=== PATIENT | female | born 1960 | race Caucasian/White ===

== ENCOUNTER 2019-03-11 01:01 | Inpatient (IN) ==
[2019-03-11] MEDS ORDERED: DOCUSATE SODIUM 100 MG CAPSULE PO PRN (05:01)
[2019-03-11] MEDS ORDERED: ACETAMINOPHEN 325 MG TABLET PO PRN (05:01)
[2019-03-11] MEDS ORDERED: PROMETHAZINE 25 MG/1 ML VIAL IM PRN (05:01)
[2019-03-11] MEDS ORDERED: DEXTROSE 50% 25 GM/50 ML SYRINGE IV PRN (05:07)
[2019-03-11] MEDS: METOCLOPRAMIDE 10 MG/2 ML VIAL IV SCH ×3 (06:00→17:50)
[2019-03-11] MEDS: SODIUM CHLORIDE 0.9% 1,000 ML IV SCH ×3 (06:00→21:52)
[2019-03-11 06:23] LABS: Basophils # 0.1 10*3/uL (0.0-0.2); Basophils % 0.4 % (0.0-0.8); Hematocrit 32.2 VOL% (35.7-47.0); Hemoglobin 10.9 GM/DL (12.0-16.0); Immature Granulocytes % 2.2 %; Immature Granulocytes Absolute 0.41 #; Lymphocytes # 2.1 10*3/uL (1.4-4.0); Lymphocytes % 11.1 % (21.3-54.2); Mean Corpuscular HGB Conc 33.9 GM/DL (32-36); Mean Corpuscular Volume 87.7 FL (87-102); Mean Platelet Volume 9.9 FL (9.6-12.0); Monocytes % 8.3 % (1.7-12.7); NRBC # 0.02 10*3/uL; Platelet Count 397 T/CUMM (130-400); Red Blood Count 3.67 MC/CUMM (3.8-5.5); Red Cell Distribution Width 17.2 % (9.3-17.3); White Blood Count 18.8 T/CUMM (4-12)
[2019-03-11 06:59] LABS: Albumin 1.7 G/DL (3.4-5.0); Bilirubin,Total 0.8 MG/DL (0.2-1.0); Osmolality,Calculated 273.1 MOS/KG (273-304); Risk Ratio 1.95; Thyroid Stimulating Hormone 1.45 uIU/ml (0.358-3.74); Total Protein 6.3 G/DL (6.4-8.3)
[2019-03-11] MEDS ORDERED: POTASSIUM CHLORIDE 20 MEQ TABLET PO PRN (07:20)
[2019-03-11] MEDS: PANTOPRAZOLE 40 MG VIAL IV SCH ×2 (08:23→21:52)
[2019-03-11] MEDS: ONDANSETRON 4 MG/2 ML VIAL IV PRN ×4 (08:23→22:35)
[2019-03-11] MEDS: INSULIN LISPRO 100 UNIT/ML SUBCUT SCH ×4 (09:29→20:01)
[2019-03-11] MEDS: MAGNESIUM SULF RIDER 4 GM in PREMIX 1 EACH IV PRN (09:47)
[2019-03-11] MEDS: POTASSIUM CHLORIDE 20 MEQ/15 ML UDCUP PO SCH ×3 (12:49→21:52)
[2019-03-12] MEDS: METOCLOPRAMIDE 10 MG/2 ML VIAL IV SCH ×4 (00:25→17:05)
[2019-03-12] MEDS: SODIUM CHLORIDE 0.9% 1,000 ML IV SCH ×4 (01:11→13:55)
[2019-03-12] MEDS: POTASSIUM CHLORIDE 20 MEQ/15 ML UDCUP PO SCH ×6 (04:13→23:10)
[2019-03-12 04:51] LABS: Basophils % 0.2 % (0.0-0.8); Hematocrit 26.5 VOL% (35.7-47.0); Immature Granulocytes % 2.2 %; Immature Granulocytes Absolute 0.28 #; Lymphocytes # 1.9 10*3/uL (1.4-4.0); Lymphocytes % 14.8 % (21.3-54.2); Mean Corpuscular Volume 87.7 FL (87-102); Mean Platelet Volume 9.4 FL (9.6-12.0); Monocytes % 9.7 % (1.7-12.7); NRBC # 0.02 10*3/uL; Neutrophils % 73.1 % (38.7-73.9); Platelet Count 327 T/CUMM (130-400); Red Blood Count 3.02 MC/CUMM (3.8-5.5); White Blood Count 12.7 T/CUMM (4-12)
[2019-03-12 05:09] LABS: Calcium 7.4 MG/DL (8.5-10.1); Osmolality,Calculated 278.5 MOS/KG (273-304)
[2019-03-12 05:13] LABS: Burr Cells Slight; Hypochromasia 1+; Ovalocytes Slight; Platelet Estimate Adequate
[2019-03-12] MEDS: POTASSIUM CHLORIDE RIDER 10 MEQ in PREMIX 1 EACH IV SCH ×2 (08:05→10:56)
[2019-03-12] MEDS: GLUCAGON 1 MG VIAL IM PRN ×2 (08:30→13:56)
[2019-03-12] MEDS: INSULIN LISPRO 100 UNIT/ML SUBCUT SCH ×4 (08:57→23:10)
[2019-03-12] MEDS: PANTOPRAZOLE 40 MG VIAL IV SCH ×2 (09:45→22:55)
[2019-03-12] MEDS: ONDANSETRON 4 MG/2 ML VIAL IV PRN ×2 (12:35→23:05)
[2019-03-13] MEDS: SODIUM CHLORIDE 0.9% 1,000 ML IV SCH ×2 (00:02→10:07)
[2019-03-13] MEDS: METOCLOPRAMIDE 10 MG/2 ML VIAL IV SCH ×2 (00:25→06:35)
[2019-03-13 05:47] LABS: Basophils % 0.3 % (0.0-0.8); Hematocrit 26.7 VOL% (35.7-47.0); Hemoglobin 8.9 GM/DL (12.0-16.0); Immature Granulocytes % 2.4 %; Lymphocytes # 2.7 10*3/uL (1.4-4.0); Lymphocytes % 21.2 % (21.3-54.2); Mean Corpuscular HGB Conc 33.3 GM/DL (32-36); Mean Corpuscular Volume 89.6 FL (87-102); Mean Platelet Volume 9.3 FL (9.6-12.0); Monocytes % 9.8 % (1.7-12.7); NRBC # 0.02 10*3/uL; Neutrophils % 66.3 % (38.7-73.9); Platelet Count 337 T/CUMM (130-400); Red Blood Count 2.98 MC/CUMM (3.8-5.5); Red Cell Distribution Width 17.9 % (9.3-17.3); White Blood Count 12.6 T/CUMM (4-12)
[2019-03-13 06:08] LABS: Calcium 7.2 MG/DL (8.5-10.1); Osmolality,Calculated 284.7 MOS/KG (273-304)
[2019-03-13] MEDS: GLUCAGON 1 MG VIAL IM PRN (06:27)
[2019-03-13] MEDS ORDERED: MAGNESIUM SULF RIDER 4 GM in PREMIX 1 EACH IV ONE (09:00)
[2019-03-13] MEDS: DEXTROSE 10% 250 ML BAG IV PRN ×2 (09:01→13:36)
[2019-03-13] MEDS: POTASSIUM CHLORIDE 20 MEQ/15 ML UDCUP PO SCH ×2 (09:42→12:31)
[2019-03-13] MEDS: INSULIN LISPRO 100 UNIT/ML SUBCUT SCH ×2 (09:52→12:16)
[2019-03-13] MEDS ORDERED: LIDOCAINE 2% 5 ML VIAL ONE (10:00)
[2019-03-13] MEDS ORDERED: propofoL 200 MG/20 ML VIAL IV ONE (10:00)
[2019-03-13] MEDS: PANTOPRAZOLE 40 MG VIAL IV SCH (10:04)
[2019-03-13] MEDS: DEXTROSE 5% NACL 0.45% 1,000 ML IV SCH ×2 (12:31→21:35)
[2019-03-13] MEDS ORDERED: DEXTROSE 10% 250 ML IV ONE (13:31)
[2019-03-13] MEDS ORDERED: DEXTROSE 10% 250 ML BAG IV PRN (13:35)
[2019-03-13] MEDS: METOCLOPRAMIDE 10 MG/10 ML UDCUP PO SCH ×2 (17:46→21:22)
[2019-03-13] MEDS: PANTOPRAZOLE 40 MG TABLET PO SCH (17:46)
[2019-03-13] MEDS: MAGNESIUM SULF RIDER 4 GM in PREMIX 1 EACH IV PRN (21:20)
[2019-03-14 06:00] LABS: Basophils # 0.1 10*3/uL (0.0-0.2); Basophils % 0.5 % (0.0-0.8); Hematocrit 32.6 VOL% (35.7-47.0); Hemoglobin 10.6 GM/DL (12.0-16.0); Immature Granulocytes % 2.1 %; Lymphocytes # 3.3 10*3/uL (1.4-4.0); Lymphocytes % 17.6 % (21.3-54.2); Mean Corpuscular HGB Conc 32.5 GM/DL (32-36); Mean Corpuscular Volume 91.3 FL (87-102); Mean Platelet Volume 9.8 FL (9.6-12.0); Monocytes % 5.6 % (1.7-12.7); NRBC # 0.04 10*3/uL; Neutrophils % 74.2 % (38.7-73.9); Platelet Count 344 T/CUMM (130-400); Red Blood Count 3.57 MC/CUMM (3.8-5.5); White Blood Count 18.7 T/CUMM (4-12)
[2019-03-14 06:16] LABS: Calcium 7.3 MG/DL (8.5-10.1); Osmolality,Calculated 276.4 MOS/KG (273-304)
[2019-03-14] MEDS ORDERED: METOPROLOL TARTRATE 25 MG TABLET PO SCH (09:00)
[2019-03-14] MEDS ORDERED: TUBERCULIN SKIN TEST 0.1 ML SYRINGE INTRADERM ONE (09:00)
[2019-03-14] MEDS: METOCLOPRAMIDE 10 MG/10 ML UDCUP PO SCH ×4 (09:01→21:36)
[2019-03-14] MEDS: FLUoxetine 20 MG CAPSULE PO SCH (09:02)
[2019-03-14] MEDS: PANTOPRAZOLE 40 MG TABLET PO SCH ×2 (09:02→17:31)
[2019-03-14] MEDS: FLUCONAZOLE 100 MG TABLET PO SCH (09:02)
[2019-03-14] MEDS ORDERED: ONDANSETRON 4 MG TABLET PO PRN (09:36)
[2019-03-14] MEDS ORDERED: METOCLOPRAMIDE 10 MG TABLET PO SCH (12:00)
[2019-03-14] MEDS: MOXIFLOXACIN 0.5% OPH SOLN 3 ML BOTTLE LEFT EYE SCH ×3 (13:04→21:36)
[2019-03-14] MEDS: tiZANidine 4 MG TABLET PO SCH ×2 (14:48→21:36)
[2019-03-14] MEDS ORDERED: ONDANSETRON ODT 4 MG TABLET PO PRN (18:07)
[2019-03-14] MEDS ORDERED: cilostazoL 100 MG TABLET PO SCH (21:00)
[2019-03-14] MEDS ORDERED: HYDROXYCHLOROQUINE 200 MG TABLET PO SCH (21:00)
[2019-03-14] MEDS: SIMVASTATIN 20 MG TABLET PO SCH (21:36)
[2019-03-14] MEDS: DORZOLAMIDE/TIMOLOL OPH SOLN 10 ML BOTTLE LEFT EYE SCH (21:37)
[2019-03-15] MEDS: PANTOPRAZOLE 40 MG TABLET PO SCH ×2 (06:30→18:22)
[2019-03-15] MEDS ORDERED: NON-FORMULARY MEDICATION (Omeprazole 40 MG) PO SCH (09:00)
[2019-03-15] MEDS: DORZOLAMIDE/TIMOLOL OPH SOLN 10 ML BOTTLE LEFT EYE SCH ×2 (09:36→20:09)
[2019-03-15] MEDS: METOCLOPRAMIDE 10 MG/10 ML UDCUP PO SCH ×2 (09:37→12:33)
[2019-03-15] MEDS: predniSONE 5 MG TABLET PO SCH (09:37)
[2019-03-15] MEDS: tiZANidine 4 MG TABLET PO SCH (09:37)
[2019-03-15] MEDS: FLUoxetine 20 MG CAPSULE PO SCH (09:37)
[2019-03-15] MEDS: FLUCONAZOLE 100 MG TABLET PO SCH (09:37)
[2019-03-15] MEDS: MOXIFLOXACIN 0.5% OPH SOLN 3 ML BOTTLE LEFT EYE SCH ×4 (09:37→20:08)
[2019-03-15] MEDS: prednisoLONE ACETATE 1% OPH SUSP 5 ML BOTTLE LEFT EYE SCH (09:48)
[2019-03-15] MEDS ORDERED: SODIUM CHLORIDE 0.9% 250 ML IV ONE (11:53)
[2019-03-15] MEDS ORDERED: SODIUM CHLORIDE 0.9% 1,000 ML IV ONE ×2 (11:58→12:50)
[2019-03-15] MEDS ORDERED: VANCOMYCIN INJ 1,250 MG in SODIUM CHLORIDE 0.9% 250 ML IV SCH (12:30)
[2019-03-15 12:46] LABS: ABG Base Excess -8.4 MMOL/L (-2.5-2.5); ABG HCO3 17.5 MMOL/L (20-26); ABG Oxygen Saturation 94.2 % (95-100); ABG PCO2 26.7 MM HG (35-48); ABG PH 7.379 (7.35-7.45); ABG TCO2 14.7 MMOL/L (23-27); Allen Test Positive
[2019-03-15 13:16] LABS: Basophils # 0.1 10*3/uL (0.0-0.2); Basophils % 0.3 % (0.0-0.8); Hematocrit 25.5 VOL% (35.7-47.0); Hemoglobin 8.2 GM/DL (12.0-16.0); Immature Granulocytes % 2.3 %; Immature Granulocytes Absolute 0.34 #; Lymphocytes # 1.1 10*3/uL (1.4-4.0); Lymphocytes % 7.4 % (21.3-54.2); Mean Corpuscular HGB Conc 32.2 GM/DL (32-36); Mean Corpuscular Volume 92.1 FL (87-102); Mean Platelet Volume 9.6 FL (9.6-12.0); Monocytes % 4.1 % (1.7-12.7); NRBC # 0.02 10*3/uL; Neutrophils % 85.9 % (38.7-73.9); Platelet Count 241 T/CUMM (130-400); Red Blood Count 2.77 MC/CUMM (3.8-5.5); Red Cell Distribution Width 18.5 % (9.3-17.3); White Blood Count 14.6 T/CUMM (4-12)
[2019-03-15] MEDS: CEFEPIME 1,000 MG in SODIUM CHLORIDE 0.9% 100 ML IV SCH ×2 (13:27→18:22)
[2019-03-15 13:40] LABS: Bilirubin,Total 0.4 MG/DL (0.2-1.0); Calcium 7.3 MG/DL (8.5-10.1); Osmolality,Calculated 281.1 MOS/KG (273-304); Total Protein 4.1 G/DL (6.4-8.3)
[2019-03-15 13:54] LABS: Lymphocytes 2 % (20-55); Platelet Estimate Normal; Segmented Neutrophils 97 % (50-85); Total Cells Counted 100
[2019-03-15 13:55] LABS: Hypochromasia Slight
[2019-03-15] MEDS ORDERED: SODIUM CHLORIDE 0.9% 1,000 ML IV PRN (13:58)
[2019-03-15] MEDS: PHENYLEPHRINE DRIP 40 MG/250 ML PREMIX IV PRN (14:08)
[2019-03-15 14:09] LABS: Apearance,Urine Slightly Hazy (Clear); Bilirubin,Urine Negative (Negative); Blood, Urine Negative (Negative); Glucose,Urine (UA) Negative (Negative); Hyaline Casts,Urine 8 /LPF (0-3); Ketones,Urine Negative (Negative); Mucus,Urine Few /LPF (Occasional); Nitrite,Urine Negative (Negative); Protein,Urine 30 MG/DL; Squamous Epithelial Cell,Urine Occasional /HPF (0-10); Urine Color Dark yellow (Yellow); Urine Specific Gravity 1.017 (1.001-1.035); WBC,Urine 3 /HPF (0-6)
[2019-03-15] MEDS: VANCOMYCIN INJ 1,250 MG in SODIUM CHLORIDE 0.9% 250 ML IV SCH (14:18)
[2019-03-15] MEDS: DEXTROSE 5% NACL 0.45% 1,000 ML IV SCH (14:22)
[2019-03-15] MEDS ORDERED: SODIUM CHLORIDE 0.9% 1,000 ML IV STA (19:02)
[2019-03-15] MEDS: MAGNESIUM SULF RIDER 2 GM in PREMIX 1 EACH IV PRN (19:09)
[2019-03-15 20:00] LABS: Hemoglobin 9.5 GM/DL (12.0-16.0)
[2019-03-15] MEDS: NYSTATIN POWDER 15 GM BOTTLE TOP SCH (20:05)
[2019-03-15] MEDS: SIMVASTATIN 20 MG TABLET PO SCH (20:05)
[2019-03-15] MEDS: BRIMONIDINE/TIMOLOL OPH SOLN 5 ML BOTTLE LEFT EYE SCH (20:07)
[2019-03-16] MEDS: CEFEPIME 1,000 MG in SODIUM CHLORIDE 0.9% 100 ML IV SCH ×4 (00:10→18:07)
[2019-03-16 02:41] LABS: Basophils # 0.1 10*3/uL (0.0-0.2); Basophils % 0.4 % (0.0-0.8); Hematocrit 31.8 VOL% (35.7-47.0); Hemoglobin 10.4 GM/DL (12.0-16.0); Immature Granulocytes Absolute 0.68 #; Lymphocytes # 1.9 10*3/uL (1.4-4.0); Lymphocytes % 8.5 % (21.3-54.2); Mean Corpuscular HGB Conc 32.7 GM/DL (32-36); Mean Corpuscular Volume 91.4 FL (87-102); Mean Platelet Volume 9.6 FL (9.6-12.0); Monocytes % 3.8 % (1.7-12.7); NRBC # 0.05 10*3/uL; Neutrophils % 84.3 % (38.7-73.9); Platelet Count 287 T/CUMM (130-400); Red Blood Count 3.48 MC/CUMM (3.8-5.5); Red Cell Distribution Width 18.1 % (9.3-17.3); White Blood Count 22.7 T/CUMM (4-12)
[2019-03-16] MEDS: PHENYLEPHRINE DRIP 40 MG/250 ML PREMIX IV PRN ×3 (03:04→15:25)
[2019-03-16 03:20] LABS: Lymphocytes 9 % (20-55); Segmented Neutrophils 88 % (50-85); Total Cells Counted 100
[2019-03-16 03:32] LABS: Acanthocytes Few; Burr Cells Few; Hypochromasia 1+; Platelet Estimate Normal; Polychromasia Few
[2019-03-16 03:56] LABS: Albumin 1.1 G/DL (3.4-5.0); Bilirubin,Total 0.8 MG/DL (0.2-1.0); Calcium 7.2 MG/DL (8.5-10.1); Total Protein 4.7 G/DL (6.4-8.3)
[2019-03-16 05:19] LABS: ABG HCO3 14.4 MMOL/L (20-26); ABG Oxygen Saturation 94.7 % (95-100); ABG PCO2 39.5 MM HG (35-48); ABG PO2 86.9 MM HG (80-95); ABG TCO2 13.7 MMOL/L (23-27)
[2019-03-16 05:26] LABS: ABG PH 7.185 (7.35-7.45)
[2019-03-16] MEDS ORDERED: SODIUM BICARBONATE 50 MEQ/50 ML VIAL IV ONE (05:28)
[2019-03-16] MEDS ORDERED: VECURONIUM 10 MG VIAL IV ONE ×2 (05:34→05:40)
[2019-03-16] MEDS ORDERED: ETOMIDATE 20 MG/10 ML VIAL IV ONE ×2 (05:34→05:40)
[2019-03-16] MEDS: DEXTROSE 5% NACL 0.45% 1,000 ML IV SCH ×2 (06:31→18:03)
[2019-03-16] MEDS: PANTOPRAZOLE 40 MG TABLET PO SCH (06:39)
[2019-03-16 08:16] LABS: ABG HCO3 15.8 MMOL/L (20-26); ABG Oxygen Saturation 95.3 % (95-100); ABG PCO2 48.5 MM HG (35-48); ABG PO2 89.2 MM HG (80-95); ABG TCO2 16.3 MMOL/L (23-27)
[2019-03-16 08:17] LABS: ABG PH 7.172 (7.35-7.45)
[2019-03-16] MEDS: FLUCONAZOLE 100 MG TABLET PO SCH (08:31)
[2019-03-16] MEDS: predniSONE 5 MG TABLET PO SCH (08:32)
[2019-03-16] MEDS: FLUoxetine 20 MG CAPSULE PO SCH (08:32)
[2019-03-16] MEDS ORDERED: HEPARIN/NACL 0.9% 2 UNITS/ML 500 ML IV ONE (08:48)
[2019-03-16] MEDS ORDERED: HEPARIN/NACL 0.9% 2 UNITS/ML 500 ML IV SCH (09:00)
[2019-03-16] MEDS: BRIMONIDINE/TIMOLOL OPH SOLN 5 ML BOTTLE LEFT EYE SCH ×2 (09:06→21:20)
[2019-03-16] MEDS: MOXIFLOXACIN 0.5% OPH SOLN 3 ML BOTTLE LEFT EYE SCH ×4 (09:07→21:21)
[2019-03-16] MEDS: prednisoLONE ACETATE 1% OPH SUSP 5 ML BOTTLE LEFT EYE SCH (09:10)
[2019-03-16] MEDS: NYSTATIN POWDER 15 GM BOTTLE TOP SCH ×2 (09:10→21:21)
[2019-03-16] MEDS: FLUCONAZOLE INJ 100 MG in IV BAG 1 EACH IV SCH (11:10)
[2019-03-16 11:11] LABS: ABG Base Excess -8.4 MMOL/L (-2.5-2.5); ABG HCO3 17.7 MMOL/L (20-26); ABG Oxygen Saturation 97.3 % (95-100); ABG PCO2 29.5 MM HG (35-48); ABG PH 7.347 (7.35-7.45); ABG PO2 88.1 MM HG (80-95); ABG TCO2 14.5 MMOL/L (23-27)
[2019-03-16] MEDS: DORZOLAMIDE/TIMOLOL OPH SOLN 10 ML BOTTLE LEFT EYE SCH ×2 (14:41→21:20)
[2019-03-16] MEDS: VANCOMYCIN INJ 1,250 MG in SODIUM CHLORIDE 0.9% 250 ML IV SCH (14:51)
[2019-03-16 18:06] LABS: ABG Base Excess -9.5 MMOL/L (-2.5-2.5); ABG HCO3 16.9 MMOL/L (20-26); ABG Oxygen Saturation 97.7 % (95-100); ABG PCO2 28.9 MM HG (35-48); ABG PH 7.332 (7.35-7.45); ABG PO2 96.4 MM HG (80-95); ABG TCO2 13.9 MMOL/L (23-27)
[2019-03-16] MEDS: PANTOPRAZOLE 40 MG VIAL IV SCH (18:07)
[2019-03-16] MEDS: SIMVASTATIN 20 MG TABLET PO SCH (21:20)
[2019-03-16] MEDS: fentaNYL INJ 1,250 MCG in SODIUM CHLORIDE 0.9% 225 ML IV PRN (22:30)
[2019-03-17] MEDS: CEFEPIME 1,000 MG in SODIUM CHLORIDE 0.9% 100 ML IV SCH ×4 (00:56→17:35)
[2019-03-17 04:23] LABS: Allen Test Positive; Pt O2 Delivery Device Ventilator
[2019-03-17 04:24] LABS: ABG Base Excess -11.1 MMOL/L (-2.5-2.5); ABG HCO3 15.5 MMOL/L (20-26); ABG Oxygen Saturation 85.5 % (95-100); ABG PCO2 39.3 MM HG (35-48); ABG PH 7.221 (7.35-7.45); ABG PO2 55.2 MM HG (80-95); ABG TCO2 14.8 MMOL/L (23-27)
[2019-03-17] MEDS: DEXTROSE 5% NACL 0.45% 1,000 ML IV SCH ×2 (05:37→07:04)
[2019-03-17] MEDS: PHENYLEPHRINE DRIP 40 MG/250 ML PREMIX IV PRN (05:38)
[2019-03-17] MEDS ORDERED: SODIUM BICARBONATE 50 MEQ/50 ML VIAL IV ONE ×2 (06:57)
[2019-03-17] MEDS: PANTOPRAZOLE 40 MG VIAL IV SCH ×2 (07:15→17:30)
[2019-03-17 07:19] LABS: Basophils # 0.1 10*3/uL (0.0-0.2); Basophils % 0.5 % (0.0-0.8); Hematocrit 34.5 VOL% (35.7-47.0); Immature Granulocytes % 2.2 %; Lymphocytes # 2.3 10*3/uL (1.4-4.0); Lymphocytes % 8.4 % (21.3-54.2); Mean Corpuscular HGB Conc 31.9 GM/DL (32-36); Mean Corpuscular Volume 93.5 FL (87-102); Mean Platelet Volume 10.2 FL (9.6-12.0); Monocytes % 3.6 % (1.7-12.7); Neutrophils % 85.3 % (38.7-73.9); Platelet Count 221 T/CUMM (130-400); Red Blood Count 3.69 MC/CUMM (3.8-5.5); White Blood Count 27.5 T/CUMM (4-12)
[2019-03-17] MEDS ORDERED: FUROSEMIDE 40 MG/4 ML VIAL IV ONE (07:19)
[2019-03-17 07:39] LABS: Burr Cells Slight; Eosinophils 1 % (0-10); Hypochromasia Slight; Lymphocytes 6 % (20-55); Ovalocytes Slight; Platelet Estimate Adequate; Segmented Neutrophils 90 % (50-85); Total Cells Counted 100
[2019-03-17 07:47] LABS: Calcium 7.4 MG/DL (8.5-10.1); Osmolality,Calculated 282.1 MOS/KG (273-304)
[2019-03-17] MEDS: HYDROCORTISONE 100 MG VIAL IV SCH ×2 (08:58→16:30)
[2019-03-17] MEDS: prednisoLONE ACETATE 1% OPH SUSP 5 ML BOTTLE LEFT EYE SCH (09:00)
[2019-03-17] MEDS: MOXIFLOXACIN 0.5% OPH SOLN 3 ML BOTTLE LEFT EYE SCH ×4 (09:00→21:06)
[2019-03-17] MEDS: BRIMONIDINE/TIMOLOL OPH SOLN 5 ML BOTTLE LEFT EYE SCH ×2 (09:01→21:07)
[2019-03-17] MEDS: DORZOLAMIDE/TIMOLOL OPH SOLN 10 ML BOTTLE LEFT EYE SCH ×2 (09:01→21:07)
[2019-03-17] MEDS: NYSTATIN POWDER 15 GM BOTTLE TOP SCH ×2 (09:01→21:07)
[2019-03-17] MEDS: MULTIVITAMIN LIQUID (CENTRUM) 60 ML BOTTLE PER TUBE SCH (09:44)
[2019-03-17] MEDS: FLUoxetine 20 MG CAPSULE PO SCH (09:44)
[2019-03-17] MEDS: FLUCONAZOLE INJ 100 MG in IV BAG 1 EACH IV SCH (09:44)
[2019-03-17] MEDS: NOREPINEPHRINE 8 MG in SODIUM CHLORIDE 0.9% 242 ML IV PRN ×2 (09:49→22:41)
[2019-03-17] MEDS: POTASSIUM CHLORIDE 20 MEQ/15 ML UDCUP PER TUBE PRN ×4 (09:56→17:30)
[2019-03-17] MEDS ORDERED: HEPARIN/NACL 0.9% 2 UNITS/ML 500 ML IV ONE (10:26)
[2019-03-17] MEDS: HEPARIN/NACL 0.9% 2 UNITS/ML 500 ML IV SCH (13:16)
[2019-03-17] MEDS: VANCOMYCIN INJ 1,250 MG in SODIUM CHLORIDE 0.9% 250 ML IV SCH (15:01)
[2019-03-17] MEDS: fentaNYL INJ 1,250 MCG in SODIUM CHLORIDE 0.9% 225 ML IV PRN (15:05)
[2019-03-17] MEDS: SODIUM BICARB INJ 100 MEQ in DEXTROSE 5% 1,000 ML IV SCH (16:03)
[2019-03-17] MEDS: SIMVASTATIN 20 MG TABLET PO SCH (21:05)
[2019-03-18] MEDS: CEFEPIME 1,000 MG in SODIUM CHLORIDE 0.9% 100 ML IV SCH ×4 (00:29→17:26)
[2019-03-18] MEDS: HYDROCORTISONE 100 MG VIAL IV SCH ×3 (00:29→16:28)
[2019-03-18] MEDS: DORZOLAMIDE/TIMOLOL OPH SOLN 10 ML BOTTLE LEFT EYE SCH ×3 (01:00→20:57)
[2019-03-18] MEDS: SODIUM BICARB INJ 100 MEQ in DEXTROSE 5% 1,000 ML IV SCH ×3 (02:11→14:40)
[2019-03-18 03:37] LABS: ABG Base Excess -8.7 MMOL/L (-2.5-2.5); ABG HCO3 16.7 MMOL/L (20-26); ABG Oxygen Saturation 97.9 % (95-100); ABG PCO2 34.1 MM HG (35-48); ABG PH 7.307 (7.35-7.45); ABG PO2 106.9 MM HG (80-95); ABG TCO2 17.7 MMOL/L (23-27)
[2019-03-18 03:51] LABS: Basophils # 0.1 10*3/uL (0.0-0.2); Basophils % 0.4 % (0.0-0.8); Hematocrit 33.3 VOL% (35.7-47.0); Hemoglobin 11.2 GM/DL (12.0-16.0); Immature Granulocytes % 3.3 %; Immature Granulocytes Absolute 1.18 #; Lymphocytes # 1.7 10*3/uL (1.4-4.0); Lymphocytes % 4.7 % (21.3-54.2); Mean Corpuscular HGB Conc 33.6 GM/DL (32-36); Mean Corpuscular Volume 90.2 FL (87-102); Mean Platelet Volume 10.7 FL (9.6-12.0); Monocytes % 3.4 % (1.7-12.7); NRBC # 0.06 10*3/uL; Neutrophils % 88.2 % (38.7-73.9); Platelet Count 157 T/CUMM (130-400); Red Blood Count 3.69 MC/CUMM (3.8-5.5); Red Cell Distribution Width 18.6 % (9.3-17.3); White Blood Count 35.2 T/CUMM (4-12)
[2019-03-18 04:16] LABS: Calcium 7.1 MG/DL (8.5-10.1); Osmolality,Calculated 288.1 MOS/KG (273-304)
[2019-03-18 04:19] LABS: Eosinophils 1 % (0-10); Hypochromasia Slight; Lymphocytes 5 % (20-55); Platelet Estimate Adequate; Segmented Neutrophils 91 % (50-85); Total Cells Counted 100
[2019-03-18] MEDS: MAGNESIUM SULF RIDER 4 GM in PREMIX 1 EACH IV PRN (04:29)
[2019-03-18] MEDS: PANTOPRAZOLE 40 MG VIAL IV SCH ×2 (06:31→18:07)
[2019-03-18] MEDS: NOREPINEPHRINE 8 MG in SODIUM CHLORIDE 0.9% 242 ML IV PRN ×2 (09:40→20:31)
[2019-03-18] MEDS: NYSTATIN POWDER 15 GM BOTTLE TOP SCH ×2 (09:41→20:57)
[2019-03-18] MEDS: MULTIVITAMIN LIQUID (CENTRUM) 60 ML BOTTLE PER TUBE SCH (09:41)
[2019-03-18] MEDS: MOXIFLOXACIN 0.5% OPH SOLN 3 ML BOTTLE LEFT EYE SCH ×4 (09:41→20:57)
[2019-03-18] MEDS: prednisoLONE ACETATE 1% OPH SUSP 5 ML BOTTLE LEFT EYE SCH (09:41)
[2019-03-18] MEDS: BRIMONIDINE/TIMOLOL OPH SOLN 5 ML BOTTLE LEFT EYE SCH ×2 (09:42→20:57)
[2019-03-18] MEDS: FLUoxetine 20 MG CAPSULE PO SCH (09:43)
[2019-03-18] MEDS: FLUCONAZOLE INJ 100 MG in IV BAG 1 EACH IV SCH (09:48)
[2019-03-18] MEDS ORDERED: SODIUM PHOSPHATE ENEMA 133 ML BOTTLE RECTAL PRN (10:31)
[2019-03-18] MEDS: HEPARIN/NACL 0.9% 2 UNITS/ML 500 ML IV SCH (12:28)
[2019-03-18] MEDS: VANCOMYCIN INJ 1,250 MG in SODIUM CHLORIDE 0.9% 250 ML IV SCH (15:23)
[2019-03-18] MEDS: fentaNYL INJ 1,250 MCG in SODIUM CHLORIDE 0.9% 225 ML IV PRN (17:25)
[2019-03-18] MEDS: SIMVASTATIN 20 MG TABLET PO SCH (20:57)
[2019-03-19] MEDS: SODIUM BICARB INJ 100 MEQ in DEXTROSE 5% 1,000 ML IV SCH ×4 (00:18→18:11)
[2019-03-19] MEDS: HYDROCORTISONE 100 MG VIAL IV SCH ×4 (00:29→18:04)
[2019-03-19] MEDS: CEFEPIME 1,000 MG in SODIUM CHLORIDE 0.9% 100 ML IV SCH ×4 (00:29→21:30)
[2019-03-19 04:19] LABS: ABG Base Excess -6.8 MMOL/L (-2.5-2.5); ABG HCO3 18.9 MMOL/L (20-26); ABG Oxygen Saturation 99.5 % (95-100); ABG PCO2 52.2 MM HG (35-48); ABG TCO2 19.6 MMOL/L (23-27)
[2019-03-19 04:28] LABS: Basophils # 0.1 10*3/uL (0.0-0.2); Basophils % 0.4 % (0.0-0.8); Hematocrit 34.1 VOL% (35.7-47.0); Hemoglobin 11.1 GM/DL (12.0-16.0); Immature Granulocytes % 3.7 %; Immature Granulocytes Absolute 1.35 #; Lymphocytes # 1.6 10*3/uL (1.4-4.0); Lymphocytes % 4.4 % (21.3-54.2); Mean Corpuscular HGB Conc 32.6 GM/DL (32-36); Mean Corpuscular Volume 92.9 FL (87-102); Mean Platelet Volume 11.5 FL (9.6-12.0); Monocytes % 3.5 % (1.7-12.7); NRBC # 0.08 10*3/uL; Platelet Count 113 T/CUMM (130-400); Red Blood Count 3.67 MC/CUMM (3.8-5.5); Red Cell Distribution Width 19.3 % (9.3-17.3); White Blood Count 36.6 T/CUMM (4-12)
[2019-03-19 04:47] LABS: Blood Urea Nitrogen 30 MG/DL (7-18); Calcium 7.4 MG/DL (8.5-10.1); Estimated Glom Filtration Rate 50 ML/MIN; Glucose 144 MG/DL (74-106); Prealbumin < 3.0 MG/DL (20-40)
[2019-03-19 04:57] LABS: Band Neutrophils 2 % (0-10); Hypochromasia Slight; Lymphocytes 2 % (20-55); Segmented Neutrophils 93 % (50-85); Total Cells Counted 100
[2019-03-19 04:58] LABS: Microcytosis 1+; Platelet Estimate Adequate
[2019-03-19] MEDS: PANTOPRAZOLE 40 MG VIAL IV SCH ×2 (06:09→18:04)
[2019-03-19] MEDS ORDERED: FUROSEMIDE 40 MG/4 ML VIAL IV ONE (07:23)
[2019-03-19] MEDS ORDERED: FUROSEMIDE 40 MG/4 ML VIAL ONE (07:25)
[2019-03-19] MEDS: NOREPINEPHRINE 8 MG in SODIUM CHLORIDE 0.9% 242 ML IV PRN (08:20)
[2019-03-19] MEDS ORDERED: METOCLOPRAMIDE 10 MG/2 ML VIAL ONE (09:25)
[2019-03-19] MEDS: FLUoxetine 20 MG CAPSULE PO SCH (09:50)
[2019-03-19] MEDS: MULTIVITAMIN LIQUID (CENTRUM) 60 ML BOTTLE PER TUBE SCH (09:50)
[2019-03-19] MEDS: DORZOLAMIDE/TIMOLOL OPH SOLN 10 ML BOTTLE LEFT EYE SCH ×2 (10:18→21:31)
[2019-03-19] MEDS: prednisoLONE ACETATE 1% OPH SUSP 5 ML BOTTLE LEFT EYE SCH (10:19)
[2019-03-19] MEDS: MOXIFLOXACIN 0.5% OPH SOLN 3 ML BOTTLE LEFT EYE SCH ×4 (10:19→21:31)
[2019-03-19] MEDS: BRIMONIDINE/TIMOLOL OPH SOLN 5 ML BOTTLE LEFT EYE SCH ×3 (10:19→21:33)
[2019-03-19] MEDS: NYSTATIN POWDER 15 GM BOTTLE TOP SCH ×2 (10:19→21:31)
[2019-03-19] MEDS: FLUCONAZOLE INJ 100 MG in IV BAG 1 EACH IV SCH (10:36)
[2019-03-19] MEDS: HEPARIN/NACL 0.9% 2 UNITS/ML 500 ML IV SCH (11:22)
[2019-03-19] MEDS: METOCLOPRAMIDE 10 MG/2 ML VIAL IV SCH ×2 (12:06→18:04)
[2019-03-19] MEDS ORDERED: INFLUENZA VIRUS VACCINE 0.5 ML SYRINGE IM ONE (12:39)
[2019-03-19] MEDS: VANCOMYCIN INJ 1,250 MG in SODIUM CHLORIDE 0.9% 250 ML IV SCH (13:42)
[2019-03-19] MEDS ORDERED: HYDROCORTISONE 100 MG VIAL IV SCH (18:00)
[2019-03-19] MEDS: SIMVASTATIN 20 MG TABLET PO SCH (21:44)
[2019-03-20] MEDS: SODIUM BICARB INJ 100 MEQ in DEXTROSE 5% 1,000 ML IV SCH ×5 (00:15→21:17)
[2019-03-20] MEDS: CEFEPIME 1,000 MG in SODIUM CHLORIDE 0.9% 100 ML IV SCH ×3 (00:59→13:14)
[2019-03-20] MEDS: METOCLOPRAMIDE 10 MG/2 ML VIAL IV SCH ×2 (00:59→05:12)
[2019-03-20] MEDS: HYDROCORTISONE 100 MG VIAL IV SCH ×4 (01:48→22:56)
[2019-03-20] MEDS: NOREPINEPHRINE 8 MG in SODIUM CHLORIDE 0.9% 242 ML IV PRN (04:08)
[2019-03-20 05:14] LABS: ABG Base Excess -1.5 MMOL/L (-2.5-2.5); ABG Oxygen Saturation 90.1 % (95-100); ABG PCO2 37.9 MM HG (35-48); ABG PH 7.393 (7.35-7.45); ABG PO2 57.2 MM HG (80-95)
[2019-03-20 05:17] LABS: Basophils # 0.1 10*3/uL (0.0-0.2); Basophils % 0.2 % (0.0-0.8); Hematocrit 28.5 VOL% (35.7-47.0); Hemoglobin 9.7 GM/DL (12.0-16.0); Immature Granulocytes Absolute 1.55 #; Lymphocytes # 1.2 10*3/uL (1.4-4.0); Lymphocytes % 4.7 % (21.3-54.2); Mean Corpuscular Volume 88.5 FL (87-102); Mean Platelet Volume 11.3 FL (9.6-12.0); Monocytes % 3.2 % (1.7-12.7); NRBC # 0.09 10*3/uL; Neutrophils % 85.9 % (38.7-73.9); Red Blood Count 3.22 MC/CUMM (3.8-5.5); Red Cell Distribution Width 18.1 % (9.3-17.3); White Blood Count 25.7 T/CUMM (4-12)
[2019-03-20 05:23] LABS: Platelet Count 46 T/CUMM (130-400)
[2019-03-20] MEDS: PANTOPRAZOLE 40 MG VIAL IV SCH ×2 (05:34→18:43)
[2019-03-20 05:42] LABS: Band Neutrophils 1 % (0-10); Lymphocytes 8 % (20-55); Platelet Estimate Decreased; Segmented Neutrophils 90 % (50-85); Total Cells Counted 100
[2019-03-20 05:43] LABS: Hypochromasia 1+; Microcytosis Slight; Ovalocytes Slight
[2019-03-20] MEDS ORDERED: ALBUMIN 25% 50 GM in PREMIX 1 EACH IV ONE (07:02)
[2019-03-20] MEDS ORDERED: METOCLOPRAMIDE 10 MG/2 ML VIAL IV SCH (07:03)
[2019-03-20] MEDS: FLUCONAZOLE INJ 100 MG in IV BAG 1 EACH IV SCH (09:09)
[2019-03-20] MEDS: FLUoxetine 20 MG CAPSULE PO SCH (09:19)
[2019-03-20] MEDS: MULTIVITAMIN LIQUID (CENTRUM) 60 ML BOTTLE PER TUBE SCH (09:19)
[2019-03-20] MEDS: MOXIFLOXACIN 0.5% OPH SOLN 3 ML BOTTLE LEFT EYE SCH ×4 (09:21→21:17)
[2019-03-20] MEDS: NYSTATIN POWDER 15 GM BOTTLE TOP SCH ×3 (09:22→23:07)
[2019-03-20] MEDS: DORZOLAMIDE/TIMOLOL OPH SOLN 10 ML BOTTLE LEFT EYE SCH ×2 (09:22→21:17)
[2019-03-20] MEDS: BRIMONIDINE/TIMOLOL OPH SOLN 5 ML BOTTLE LEFT EYE SCH ×2 (09:22→21:17)
[2019-03-20] MEDS: prednisoLONE ACETATE 1% OPH SUSP 5 ML BOTTLE LEFT EYE SCH (09:22)
[2019-03-20 11:21] LABS: Basophils # 0.1 10*3/uL (0.0-0.2); Basophils % 0.2 % (0.0-0.8); Hematocrit 27.1 VOL% (35.7-47.0); Immature Granulocytes % 5.1 %; Immature Granulocytes Absolute 1.27 #; Lymphocytes # 1.3 10*3/uL (1.4-4.0); Lymphocytes % 5.2 % (21.3-54.2); Mean Corpuscular HGB Conc 33.2 GM/DL (32-36); Mean Corpuscular Volume 90.6 FL (87-102); Monocytes % 2.9 % (1.7-12.7); Neutrophils % 86.6 % (38.7-73.9); Red Blood Count 2.99 MC/CUMM (3.8-5.5); Red Cell Distribution Width 18.3 % (9.3-17.3)
[2019-03-20 11:25] LABS: Platelet Count 36 T/CUMM (130-400)
[2019-03-20 11:37] LABS: Lymphocytes 6 % (20-55); Platelet Estimate Decreased; Segmented Neutrophils 92 % (50-85); Total Cells Counted 100
[2019-03-20 11:38] LABS: Hypochromasia 1+
[2019-03-20 12:08] LABS: INR 1.8; PT Patient Result 19.1 SECS (9.6-12.2)
[2019-03-20 13:28] LABS: Bilirubin,Direct 1.03 MG/DL (0.0-0.20); Bilirubin,Indirect 0.4 MG/DL (0.0-1.0); Bilirubin,Total 1.4 MG/DL (0.2-1.0); Total Protein 4.9 G/DL (6.4-8.3)
[2019-03-20 14:35] LABS: Basophils % 0.2 % (0.0-0.8); Hematocrit 26.2 VOL% (35.7-47.0); Hemoglobin 8.7 GM/DL (12.0-16.0); Immature Granulocytes % 4.8 %; Immature Granulocytes Absolute 1.06 #; Lymphocytes # 1.2 10*3/uL (1.4-4.0); Lymphocytes % 5.4 % (21.3-54.2); Mean Corpuscular HGB Conc 33.2 GM/DL (32-36); Mean Corpuscular Volume 90.3 FL (87-102); Monocytes % 2.6 % (1.7-12.7); NRBC # 0.05 10*3/uL; Red Cell Distribution Width 18.4 % (9.3-17.3); White Blood Count 22.1 T/CUMM (4-12)
[2019-03-20 14:38] LABS: Platelet Count 32 T/CUMM (130-400)
[2019-03-20] MEDS ORDERED: SODIUM CHLORIDE 0.9% 1,000 ML IV PRN ×2 (14:50→16:37)
[2019-03-20] MEDS: VANCOMYCIN INJ 1,250 MG in SODIUM CHLORIDE 0.9% 250 ML IV SCH (15:00)
[2019-03-20 15:02] LABS: Anisocytosis 1+; Band Neutrophils 5 % (0-10); Lymphocytes 4 % (20-55); Macrocytosis 1+; Microcytosis Slight; Nucleated Red Blood Cells 2 (0-5); Platelet Estimate Decreased; Polychromasia Slight; Reactive Lymphocytes Slight; Segmented Neutrophils 90 % (50-85); Total Cells Counted 100
[2019-03-20] MEDS: MEROPENEM 500 MG in SODIUM CHLORIDE 0.9% 100 ML IV SCH ×2 (17:09→22:55)
[2019-03-20 17:17] LABS: Albumin 1.7 G/DL (3.4-5.0); Bilirubin,Total 1.4 MG/DL (0.2-1.0); Calcium 7.1 MG/DL (8.5-10.1); Osmolality,Calculated 285.7 MOS/KG (273-304); Total Protein 4.5 G/DL (6.4-8.3)
[2019-03-20] MEDS ORDERED: FUROSEMIDE 40 MG/4 ML VIAL IV ONE (19:01)
[2019-03-20] MEDS: SIMVASTATIN 20 MG TABLET PO SCH (21:15)
[2019-03-21 00:10] LABS: Basophils % 0.2 % (0.0-0.8); Hematocrit 27.8 VOL% (35.7-47.0); Hemoglobin 9.3 GM/DL (12.0-16.0); Immature Granulocytes % 3.2 %; Immature Granulocytes Absolute 0.56 #; Lymphocytes % 5.8 % (21.3-54.2); Mean Corpuscular HGB Conc 33.5 GM/DL (32-36); Mean Corpuscular Volume 89.4 FL (87-102); Monocytes % 2.2 % (1.7-12.7); NRBC # 0.05 10*3/uL; Neutrophils % 88.6 % (38.7-73.9); Red Blood Count 3.11 MC/CUMM (3.8-5.5); Red Cell Distribution Width 17.1 % (9.3-17.3); White Blood Count 17.7 T/CUMM (4-12)
[2019-03-21 00:13] LABS: Platelet Count 33 T/CUMM (130-400)
[2019-03-21 00:33] LABS: Anisocytosis 1+; Band Neutrophils 4 % (0-10); Lymphocytes 7 % (20-55); Nucleated Red Blood Cells 2 (0-5); Platelet Estimate Decreased; Segmented Neutrophils 89 % (50-85); Total Cells Counted 100
[2019-03-21 04:04] LABS: INR 1.5; PT Patient Result 16.2 SECS (9.6-12.2); Partial Thromboplastin Time 33.6 SECS (20.8-36.0)
[2019-03-21 04:06] LABS: Basophils % 0.1 % (0.0-0.8); Hematocrit 26.3 VOL% (35.7-47.0); Immature Granulocytes % 2.8 %; Immature Granulocytes Absolute 0.43 #; Lymphocytes # 0.8 10*3/uL (1.4-4.0); Lymphocytes % 5.3 % (21.3-54.2); Mean Corpuscular HGB Conc 34.2 GM/DL (32-36); Mean Corpuscular Volume 88.6 FL (87-102); NRBC # 0.05 10*3/uL; Neutrophils % 89.8 % (38.7-73.9); Red Blood Count 2.97 MC/CUMM (3.8-5.5); Red Cell Distribution Width 16.9 % (9.3-17.3); White Blood Count 15.4 T/CUMM (4-12)
[2019-03-21 04:14] LABS: ABG Base Excess 0.3 MMOL/L (-2.5-2.5); ABG HCO3 24.7 MMOL/L (20-26); ABG PCO2 41.3 MM HG (35-48); ABG PH 7.393 (7.35-7.45); ABG TCO2 23.2 MMOL/L (23-27)
[2019-03-21] MEDS: MEROPENEM 500 MG in SODIUM CHLORIDE 0.9% 100 ML IV SCH ×3 (04:16→16:15)
[2019-03-21 04:17] LABS: Platelet Count 27 T/CUMM (130-400)
[2019-03-21] MEDS: NOREPINEPHRINE 8 MG in SODIUM CHLORIDE 0.9% 242 ML IV PRN (04:19)
[2019-03-21 04:25] LABS: Band Neutrophils 1 % (0-10); Hypochromasia 1+; Lymphocytes 5 % (20-55); Ovalocytes Slight; Platelet Estimate Decreased; Segmented Neutrophils 93 % (50-85); Total Cells Counted 100
[2019-03-21 04:26] LABS: Microcytosis Slight
[2019-03-21 04:29] LABS: Albumin 1.7 G/DL (3.4-5.0); Bilirubin,Total 1.7 MG/DL (0.2-1.0); Calcium 7.4 MG/DL (8.5-10.1); Osmolality,Calculated 283.7 MOS/KG (273-304); Total Protein 4.6 G/DL (6.4-8.3)
[2019-03-21] MEDS ORDERED: DEXTROSE 10% 250 ML BAG IV PRN (07:03)
[2019-03-21] MEDS: PANTOPRAZOLE 40 MG VIAL IV SCH ×2 (07:03→17:30)
[2019-03-21] MEDS: HYDROCORTISONE 100 MG VIAL IV SCH (07:07)
[2019-03-21] MEDS: POTASSIUM CHLORIDE 20 MEQ/15 ML UDCUP PER TUBE PRN (07:08)
[2019-03-21] MEDS ORDERED: PHYTONADIONE INJ 5 MG in SODIUM CHLORIDE 0.9% 50 ML IV ONE (08:00)
[2019-03-21] MEDS: DORZOLAMIDE/TIMOLOL OPH SOLN 10 ML BOTTLE LEFT EYE SCH ×2 (08:25→20:53)
[2019-03-21] MEDS: BRIMONIDINE/TIMOLOL OPH SOLN 5 ML BOTTLE LEFT EYE SCH ×2 (08:30→20:53)
[2019-03-21] MEDS: SODIUM BICARB INJ 100 MEQ in DEXTROSE 5% 1,000 ML IV SCH (08:35)
[2019-03-21] MEDS: MOXIFLOXACIN 0.5% OPH SOLN 3 ML BOTTLE LEFT EYE SCH ×4 (08:35→20:57)
[2019-03-21] MEDS: prednisoLONE ACETATE 1% OPH SUSP 5 ML BOTTLE LEFT EYE SCH (08:40)
[2019-03-21] MEDS: MULTIVITAMIN LIQUID (CENTRUM) 60 ML BOTTLE PER TUBE SCH (08:50)
[2019-03-21] MEDS ORDERED: POTASSIUM CHLORIDE RIDER 10 MEQ in PREMIX 1 EACH IV PRN (08:51)
[2019-03-21] MEDS: NYSTATIN POWDER 15 GM BOTTLE TOP SCH ×2 (09:15→20:53)
[2019-03-21] MEDS: POTASSIUM CHLORIDE RIDER 20 MEQ in PREMIX 1 EACH IV PRN ×3 (09:25→17:30)
[2019-03-21] MEDS: FLUCONAZOLE INJ 100 MG in IV BAG 1 EACH IV SCH (09:30)
[2019-03-21 09:49] LABS: Basophils % 0.2 % (0.0-0.8); Hematocrit 28.8 VOL% (35.7-47.0); Hemoglobin 9.8 GM/DL (12.0-16.0); Immature Granulocytes % 3.4 %; Immature Granulocytes Absolute 0.62 #; Lymphocytes # 0.9 10*3/uL (1.4-4.0); Lymphocytes % 4.9 % (21.3-54.2); Mean Corpuscular Volume 88.1 FL (87-102); Monocytes % 2.4 % (1.7-12.7); NRBC # 0.11 10*3/uL; Neutrophils % 89.1 % (38.7-73.9); Red Blood Count 3.27 MC/CUMM (3.8-5.5); Red Cell Distribution Width 17.2 % (9.3-17.3); White Blood Count 18.1 T/CUMM (4-12)
[2019-03-21 09:59] LABS: Platelet Count 25 T/CUMM (130-400)
[2019-03-21] MEDS ORDERED: POTASSIUM CHLORIDE INJ 40 MEQ in DEXTROSE 5% NACL 0.9% 1,000 ML IV SCH (10:00)
[2019-03-21 10:06] LABS: Lymphocytes 7 % (20-55); Nucleated Red Blood Cells 1 (0-5); Segmented Neutrophils 88 % (50-85); Total Cells Counted 100
[2019-03-21 10:07] LABS: Hypochromasia 1+; Microcytosis Slight; Platelet Estimate Decreased
[2019-03-21] MEDS: methylPREDNISolone SOD SUC 40 MG/1 ML VIAL IV SCH ×2 (11:50→20:52)
[2019-03-21] MEDS: VANCOMYCIN INJ 1,250 MG in SODIUM CHLORIDE 0.9% 250 ML IV SCH (14:15)
[2019-03-21 16:24] LABS: Basophils # 0.1 10*3/uL (0.0-0.2); Basophils % 0.3 % (0.0-0.8); Hematocrit 29.2 VOL% (35.7-47.0); Hemoglobin 9.8 GM/DL (12.0-16.0); Immature Granulocytes % 4.4 %; Immature Granulocytes Absolute 0.83 #; Lymphocytes # 0.9 10*3/uL (1.4-4.0); Lymphocytes % 4.7 % (21.3-54.2); Mean Corpuscular HGB Conc 33.6 GM/DL (32-36); Mean Corpuscular Volume 88.8 FL (87-102); Monocytes % 1.9 % (1.7-12.7); NRBC # 0.12 10*3/uL; Neutrophils % 88.7 % (38.7-73.9); Red Blood Count 3.29 MC/CUMM (3.8-5.5); Red Cell Distribution Width 17.3 % (9.3-17.3); White Blood Count 18.9 T/CUMM (4-12)
[2019-03-21 16:27] LABS: Platelet Count 23 T/CUMM (130-400)
[2019-03-21 16:58] LABS: Band Neutrophils 1 % (0-10); Hypochromasia Slight; Lymphocytes 1 % (20-55); Microcytosis Slight; Nucleated Red Blood Cells 1 (0-5); Platelet Estimate Decreased; Segmented Neutrophils 96 % (50-85); Total Cells Counted 100
[2019-03-21] MEDS: MAGNESIUM SULF RIDER 2 GM in PREMIX 1 EACH IV PRN (17:30)
[2019-03-21] MEDS ORDERED: DEXT 5% NACL 0.9% KCL 40 MEQ 40 MEQ/1,000 ML BAG IV SCH (20:12)
[2019-03-21] MEDS: SIMVASTATIN 20 MG TABLET PO SCH (20:53)
[2019-03-22] MEDS: MEROPENEM 500 MG in SODIUM CHLORIDE 0.9% 100 ML IV SCH (00:27)
[2019-03-22 03:51] LABS: ABG Base Excess 1.2 MMOL/L (-2.5-2.5); ABG HCO3 25.4 MMOL/L (20-26); ABG PCO2 42.9 MM HG (35-48); ABG PH 7.394 (7.35-7.45); ABG TCO2 23.6 MMOL/L (23-27)
[2019-03-22 03:58] LABS: Basophils # 0.1 10*3/uL (0.0-0.2); Basophils % 0.4 % (0.0-0.8); Hematocrit 32.6 VOL% (35.7-47.0); Hemoglobin 10.8 GM/DL (12.0-16.0); Immature Granulocytes % 5.1 %; Immature Granulocytes Absolute 0.97 #; Lymphocytes % 5.5 % (21.3-54.2); Mean Corpuscular HGB Conc 33.1 GM/DL (32-36); Mean Corpuscular Volume 89.6 FL (87-102); Monocytes % 2.4 % (1.7-12.7); NRBC # 0.16 10*3/uL; Neutrophils % 86.6 % (38.7-73.9); Red Blood Count 3.64 MC/CUMM (3.8-5.5); Red Cell Distribution Width 17.5 % (9.3-17.3); White Blood Count 18.9 T/CUMM (4-12)
[2019-03-22 04:17] LABS: Calcium 7.4 MG/DL (8.5-10.1); Osmolality,Calculated 290.3 MOS/KG (273-304)
[2019-03-22 04:46] LABS: Platelet Count 27 T/CUMM (130-400)
[2019-03-22] MEDS: methylPREDNISolone SOD SUC 40 MG/1 ML VIAL IV SCH ×3 (05:05→20:17)
[2019-03-22] MEDS: PANTOPRAZOLE 40 MG VIAL IV SCH ×2 (06:21→17:30)
[2019-03-22 07:45] LABS: INR 1.5; PT Patient Result 16.1 SECS (9.6-12.2)
[2019-03-22] MEDS ORDERED: IMMUNE GLOBULIN 10% 20 GM in PREMIX 1 EACH IV ONE (08:00)
[2019-03-22 08:17] LABS: Bilirubin,Total 1.2 MG/DL (0.2-1.0); Osmolality,Calculated 297.4 MOS/KG (273-304); Total Protein 3.3 G/DL (6.4-8.3)
[2019-03-22] MEDS: ALBUMIN 25% 12.5 GM in PREMIX 1 EACH IV SCH ×2 (08:45→20:14)
[2019-03-22] MEDS: BRIMONIDINE/TIMOLOL OPH SOLN 5 ML BOTTLE LEFT EYE SCH ×2 (08:45→20:19)
[2019-03-22] MEDS: MULTIVITAMIN LIQUID (CENTRUM) 60 ML BOTTLE PER TUBE SCH (08:45)
[2019-03-22] MEDS: DORZOLAMIDE/TIMOLOL OPH SOLN 10 ML BOTTLE LEFT EYE SCH ×2 (08:50→20:19)
[2019-03-22] MEDS: MOXIFLOXACIN 0.5% OPH SOLN 3 ML BOTTLE LEFT EYE SCH ×4 (08:55→20:19)
[2019-03-22] MEDS: prednisoLONE ACETATE 1% OPH SUSP 5 ML BOTTLE LEFT EYE SCH (09:00)
[2019-03-22] MEDS: NYSTATIN POWDER 15 GM BOTTLE TOP SCH ×2 (09:05→20:18)
[2019-03-22] MEDS: FLUCONAZOLE INJ 100 MG in IV BAG 1 EACH IV SCH (09:30)
[2019-03-22] MEDS: FUROSEMIDE 40 MG/4 ML VIAL IV SCH ×2 (09:30→20:45)
[2019-03-22] MEDS ORDERED: DEXTROSE 10% 1,000 ML IV PRN (17:00)
[2019-03-22 17:15] LABS: HIT Interpretation Negative (Negative)
[2019-03-22] MEDS: ELECTROLYTE IV SCH (18:05)
[2019-03-22] MEDS: MULTIVITAMIN IV SCH (18:05)
[2019-03-22] MEDS: [UNRECOGNIZED DRUG - OTHER] IV SCH (18:05)
[2019-03-22] MEDS: AMINO ACIDS IV SCH (18:05)
[2019-03-22] MEDS: INSULIN REGULAR 100 UNIT/ML SUBCUT SCH ×2 (20:45→23:39)
[2019-03-23 04:00] LABS: ABG Base Excess 1.2 MMOL/L (-2.5-2.5); ABG HCO3 25.5 MMOL/L (20-26); ABG Oxygen Saturation 99.3 % (95-100); ABG PCO2 48.3 MM HG (35-48); ABG PH 7.357 (7.35-7.45); ABG TCO2 24.9 MMOL/L (23-27)
[2019-03-23 04:12] LABS: Basophils % 0.1 % (0.0-0.8); Hematocrit 27.7 VOL% (35.7-47.0); Hemoglobin 8.9 GM/DL (12.0-16.0); Immature Granulocytes % 6.5 %; Immature Granulocytes Absolute 0.91 #; Lymphocytes # 0.8 10*3/uL (1.4-4.0); Mean Corpuscular HGB Conc 32.1 GM/DL (32-36); Mean Corpuscular Volume 93.3 FL (87-102); Monocytes % 2.7 % (1.7-12.7); NRBC # 0.22 10*3/uL; Neutrophils % 84.7 % (38.7-73.9); Red Blood Count 2.97 MC/CUMM (3.8-5.5); Red Cell Distribution Width 17.4 % (9.3-17.3)
[2019-03-23 04:16] LABS: Platelet Count 21 T/CUMM (130-400)
[2019-03-23 04:32] LABS: Calcium 7.6 MG/DL (8.5-10.1); Osmolality,Calculated 293.7 MOS/KG (273-304)
[2019-03-23 04:35] LABS: Prealbumin 7.4 MG/DL (20-40)
[2019-03-23] MEDS: INSULIN REGULAR 100 UNIT/ML SUBCUT SCH ×5 (04:44→20:07)
[2019-03-23] MEDS: methylPREDNISolone SOD SUC 40 MG/1 ML VIAL IV SCH ×3 (04:44→20:17)
[2019-03-23 04:55] LABS: INR 1.4; PT Patient Result 15.2 SECS (9.6-12.2)
[2019-03-23 05:15] LABS: Anisocytosis 1+; Lymphocytes 8 % (20-55); Microcytosis 1+; Poikilocytosis 1+; Segmented Neutrophils 90 % (50-85)
[2019-03-23 05:16] LABS: Hypochromasia 1+; Platelet Estimate Decreased
[2019-03-23 05:17] LABS: Ovalocytes Slight; Total Cells Counted 100
[2019-03-23] MEDS: PANTOPRAZOLE 40 MG VIAL IV SCH (07:14)
[2019-03-23] MEDS: FUROSEMIDE 40 MG/4 ML VIAL IV SCH ×3 (08:08→20:29)
[2019-03-23] MEDS: [UNRECOGNIZED DRUG - OTHER] IV SCH ×2 (08:08→20:21)
[2019-03-23] MEDS: MULTIVITAMIN IV SCH ×2 (08:08→20:21)
[2019-03-23] MEDS: ELECTROLYTE IV SCH ×2 (08:08→20:21)
[2019-03-23] MEDS: AMINO ACIDS IV SCH ×2 (08:08→20:21)
[2019-03-23] MEDS: NYSTATIN POWDER 15 GM BOTTLE TOP SCH ×2 (08:09→20:13)
[2019-03-23] MEDS: ALBUMIN 25% 12.5 GM in PREMIX 1 EACH IV SCH ×2 (08:09→20:06)
[2019-03-23] MEDS: MOXIFLOXACIN 0.5% OPH SOLN 3 ML BOTTLE LEFT EYE SCH ×4 (08:09→20:11)
[2019-03-23] MEDS: BRIMONIDINE/TIMOLOL OPH SOLN 5 ML BOTTLE LEFT EYE SCH ×2 (08:09→20:28)
[2019-03-23] MEDS: MULTIVITAMIN LIQUID (CENTRUM) 60 ML BOTTLE PER TUBE SCH (08:09)
[2019-03-23] MEDS: DORZOLAMIDE/TIMOLOL OPH SOLN 10 ML BOTTLE LEFT EYE SCH ×2 (08:10→20:10)
[2019-03-23] MEDS: prednisoLONE ACETATE 1% OPH SUSP 5 ML BOTTLE LEFT EYE SCH (08:10)
[2019-03-23] MEDS: fentaNYL INJ 1,250 MCG in SODIUM CHLORIDE 0.9% 225 ML IV PRN (09:00)
[2019-03-23] MEDS: FLUCONAZOLE INJ 100 MG in IV BAG 1 EACH IV SCH (09:04)
[2019-03-23] MEDS ORDERED: SODIUM CHLORIDE 0.9% 1,000 ML IV PRN (10:18)
[2019-03-23] MEDS: SUCRALFATE 1 GM/10 ML UDCUP NG SCH ×2 (12:14→17:00)
[2019-03-23] MEDS ORDERED: FAT EMULSION 20% 250 ML IV SCH (14:00)
[2019-03-24] MEDS: INSULIN REGULAR 100 UNIT/ML SUBCUT SCH ×6 (00:45→20:15)
[2019-03-24] MEDS: SUCRALFATE 1 GM/10 ML UDCUP NG SCH ×4 (00:46→18:07)
[2019-03-24] MEDS: methylPREDNISolone SOD SUC 40 MG/1 ML VIAL IV SCH ×3 (04:54→20:16)
[2019-03-24 05:44] LABS: ABG Base Excess -0.1 MMOL/L (-2.5-2.5); ABG HCO3 24.3 MMOL/L (20-26); ABG Oxygen Saturation 97.6 % (95-100); ABG PCO2 60.1 MM HG (35-48); ABG PH 7.283 (7.35-7.45); ABG TCO2 24.9 MMOL/L (23-27)
[2019-03-24 05:44] LABS: Basophils # 0.1 10*3/uL (0.0-0.2); Basophils % 0.3 % (0.0-0.8); Hematocrit 29.3 VOL% (35.7-47.0); Hemoglobin 9.3 GM/DL (12.0-16.0); Immature Granulocytes % 7.6 %; Lymphocytes # 0.8 10*3/uL (1.4-4.0); Lymphocytes % 4.6 % (21.3-54.2); Mean Corpuscular HGB Conc 31.7 GM/DL (32-36); Mean Corpuscular Volume 94.2 FL (87-102); Monocytes % 3.5 % (1.7-12.7); NRBC # 0.34 10*3/uL; Red Blood Count 3.11 MC/CUMM (3.8-5.5); Red Cell Distribution Width 17.3 % (9.3-17.3); White Blood Count 17.1 T/CUMM (4-12)
[2019-03-24 05:50] LABS: Platelet Count 22 T/CUMM (130-400)
[2019-03-24 05:56] LABS: Calcium 8.2 MG/DL (8.5-10.1); Osmolality,Calculated 296.7 MOS/KG (273-304)
[2019-03-24] MEDS: POTASSIUM CHLORIDE RIDER 20 MEQ in PREMIX 1 EACH IV PRN (06:07)
[2019-03-24 06:14] LABS: Band Neutrophils 3 % (0-10); Lymphocytes 4 % (20-55); Nucleated Red Blood Cells 1 (0-5); Segmented Neutrophils 89 % (50-85); Total Cells Counted 100
[2019-03-24 06:15] LABS: Anisocytosis 1+; Macrocytosis Slight; Tear Drop Cells Few
[2019-03-24 06:16] LABS: Platelet Estimate Decreased
[2019-03-24] MEDS: fentaNYL INJ 1,250 MCG in SODIUM CHLORIDE 0.9% 225 ML IV PRN (08:00)
[2019-03-24] MEDS: ALBUMIN 25% 12.5 GM in PREMIX 1 EACH IV SCH ×2 (08:02→19:40)
[2019-03-24] MEDS: FUROSEMIDE 40 MG/4 ML VIAL IV SCH ×2 (08:03→20:10)
[2019-03-24] MEDS: NYSTATIN POWDER 15 GM BOTTLE TOP SCH ×2 (08:03→20:19)
[2019-03-24] MEDS: DORZOLAMIDE/TIMOLOL OPH SOLN 10 ML BOTTLE LEFT EYE SCH ×2 (08:03→20:19)
[2019-03-24] MEDS: prednisoLONE ACETATE 1% OPH SUSP 5 ML BOTTLE LEFT EYE SCH (08:04)
[2019-03-24] MEDS: BRIMONIDINE/TIMOLOL OPH SOLN 5 ML BOTTLE LEFT EYE SCH ×2 (08:04→20:19)
[2019-03-24] MEDS: MULTIVITAMIN LIQUID (CENTRUM) 60 ML BOTTLE PER TUBE SCH (08:04)
[2019-03-24] MEDS: MOXIFLOXACIN 0.5% OPH SOLN 3 ML BOTTLE LEFT EYE SCH ×4 (08:04→20:19)
[2019-03-24] MEDS: MULTIVITAMIN IV SCH ×2 (09:45→23:30)
[2019-03-24] MEDS: ELECTROLYTE IV SCH ×2 (09:45→23:30)
[2019-03-24] MEDS: AMINO ACIDS IV SCH ×2 (09:45→23:30)
[2019-03-24] MEDS: [UNRECOGNIZED DRUG - OTHER] IV SCH ×2 (09:45→23:30)
[2019-03-24] MEDS ORDERED: ALBUTEROL/IPRATROPIUM 3 ML NEB RESP TX PRN (10:46)
[2019-03-24] MEDS ORDERED: ALBUTEROL/IPRATROPIUM 3 ML NEB RESP TX ONE (10:46)
[2019-03-24] MEDS: BUDESONIDE 0.5 MG/2 ML NEB RESP TX SCH ×2 (11:09→19:57)
[2019-03-25] MEDS: INSULIN REGULAR 100 UNIT/ML SUBCUT SCH ×6 (01:10→20:38)
[2019-03-25] MEDS: SUCRALFATE 1 GM/10 ML UDCUP NG SCH ×4 (01:11→17:21)
[2019-03-25 05:10] LABS: Basophils # 0.1 10*3/uL (0.0-0.2); Basophils % 0.4 % (0.0-0.8); Hematocrit 32.4 VOL% (35.7-47.0); Hemoglobin 10.1 GM/DL (12.0-16.0); Immature Granulocytes % 7.7 %; Immature Granulocytes Absolute 1.66 #; Lymphocytes # 0.9 10*3/uL (1.4-4.0); Lymphocytes % 4.1 % (21.3-54.2); Mean Corpuscular HGB Conc 31.2 GM/DL (32-36); Monocytes % 4.5 % (1.7-12.7); NRBC # 0.56 10*3/uL; Neutrophils % 83.3 % (38.7-73.9); Red Blood Count 3.41 MC/CUMM (3.8-5.5); Red Cell Distribution Width 17.2 % (9.3-17.3); White Blood Count 21.4 T/CUMM (4-12)
[2019-03-25 05:12] LABS: ABG Base Excess 0.8 MMOL/L (-2.5-2.5); ABG HCO3 25.1 MMOL/L (20-26); ABG Oxygen Saturation 95.3 % (95-100); ABG PH 7.293 (7.35-7.45); ABG PO2 78.1 MM HG (80-95); ABG TCO2 26.1 MMOL/L (23-27)
[2019-03-25 05:21] LABS: Platelet Count 31 T/CUMM (130-400)
[2019-03-25 05:24] LABS: INR 1.2; PT Patient Result 12.7 SECS (9.6-12.2); Partial Thromboplastin Time 25.4 SECS (20.8-36.0)
[2019-03-25 05:29] LABS: Calcium 8.7 MG/DL (8.5-10.1)
[2019-03-25 05:43] LABS: Lymphocytes 8 % (20-55); Myelocytes 1 %; Nucleated Red Blood Cells 7 (0-5); Segmented Neutrophils 84 % (50-85); Total Cells Counted 100
[2019-03-25 05:44] LABS: Anisocytosis 1+; Platelet Estimate Decreased; Target Cells Few
[2019-03-25] MEDS: methylPREDNISolone SOD SUC 40 MG/1 ML VIAL IV SCH ×3 (05:55→20:35)
[2019-03-25] MEDS: BUDESONIDE 0.5 MG/2 ML NEB RESP TX SCH ×2 (07:30→19:30)
[2019-03-25] MEDS: FUROSEMIDE 40 MG/4 ML VIAL IV SCH ×2 (08:50→20:30)
[2019-03-25] MEDS: NYSTATIN POWDER 15 GM BOTTLE TOP SCH ×2 (08:51→20:42)
[2019-03-25] MEDS: BRIMONIDINE/TIMOLOL OPH SOLN 5 ML BOTTLE LEFT EYE SCH ×2 (08:51→21:17)
[2019-03-25] MEDS: ALBUMIN 25% 12.5 GM in PREMIX 1 EACH IV SCH ×2 (08:51→20:40)
[2019-03-25] MEDS: MULTIVITAMIN LIQUID (CENTRUM) 60 ML BOTTLE PER TUBE SCH (08:51)
[2019-03-25] MEDS: MOXIFLOXACIN 0.5% OPH SOLN 3 ML BOTTLE LEFT EYE SCH ×4 (08:52→20:42)
[2019-03-25] MEDS: POTASSIUM CHLORIDE RIDER 20 MEQ in PREMIX 1 EACH IV PRN (08:52)
[2019-03-25] MEDS: prednisoLONE ACETATE 1% OPH SUSP 5 ML BOTTLE LEFT EYE SCH (08:52)
[2019-03-25] MEDS: DORZOLAMIDE/TIMOLOL OPH SOLN 10 ML BOTTLE LEFT EYE SCH ×2 (08:52→20:42)
[2019-03-25] MEDS ORDERED: MAGNESIUM HYDROXIDE SUSP 30 ML UDCUP PO SCH (12:00)
[2019-03-25] MEDS: MAGNESIUM HYDROXIDE SUSP 30 ML UDCUP PO SCH ×3 (12:19→20:30)
[2019-03-25] MEDS: MULTIVITAMIN IV SCH (12:44)
[2019-03-25] MEDS: ELECTROLYTE IV SCH (12:44)
[2019-03-25] MEDS: [UNRECOGNIZED DRUG - OTHER] IV SCH (12:44)
[2019-03-25] MEDS: AMINO ACIDS IV SCH (12:44)
[2019-03-26] MEDS: MAGNESIUM HYDROXIDE SUSP 30 ML UDCUP PO SCH ×8 (01:23→23:38)
[2019-03-26] MEDS: INSULIN REGULAR 100 UNIT/ML SUBCUT SCH ×7 (01:23→23:34)
[2019-03-26] MEDS: SUCRALFATE 1 GM/10 ML UDCUP NG SCH ×6 (01:24→23:34)
[2019-03-26] MEDS: [UNRECOGNIZED DRUG - OTHER] IV SCH (02:32)
[2019-03-26] MEDS: MULTIVITAMIN IV SCH ×2 (02:32→17:19)
[2019-03-26] MEDS: ELECTROLYTE IV SCH ×2 (02:32→17:19)
[2019-03-26] MEDS: AMINO ACIDS IV SCH (02:32)
[2019-03-26] MEDS: methylPREDNISolone SOD SUC 40 MG/1 ML VIAL IV SCH ×3 (05:07→20:59)
[2019-03-26 05:35] LABS: ABG Base Excess 3.8 MMOL/L (-2.5-2.5); ABG HCO3 27.6 MMOL/L (20-26); ABG Oxygen Saturation 91.8 % (95-100); ABG PCO2 47.9 MM HG (35-48); ABG PH 7.398 (7.35-7.45); ABG PO2 61.7 MM HG (80-95); ABG TCO2 25.9 MMOL/L (23-27)
[2019-03-26 05:42] LABS: Basophils # 0.1 10*3/uL (0.0-0.2); Basophils % 0.6 % (0.0-0.8); Hematocrit 32.5 VOL% (35.7-47.0); Hemoglobin 10.5 GM/DL (12.0-16.0); Immature Granulocytes Absolute 2.23 #; Lymphocytes # 0.9 10*3/uL (1.4-4.0); Lymphocytes % 3.7 % (21.3-54.2); Mean Corpuscular HGB Conc 32.3 GM/DL (32-36); Mean Corpuscular Volume 93.9 FL (87-102); Monocytes % 4.6 % (1.7-12.7); NRBC # 0.82 10*3/uL; Neutrophils % 82.1 % (38.7-73.9); Platelet Count 45 T/CUMM (130-400); Red Blood Count 3.46 MC/CUMM (3.8-5.5); Red Cell Distribution Width 17.9 % (9.3-17.3); White Blood Count 24.8 T/CUMM (4-12)
[2019-03-26 06:06] LABS: Calcium 8.8 MG/DL (8.5-10.1); Osmolality,Calculated 305.2 MOS/KG (273-304)
[2019-03-26 06:08] LABS: Band Neutrophils 1 % (0-10); Hypochromasia 1+; Lymphocytes 8 % (20-55); Nucleated Red Blood Cells 3 (0-5); Platelet Estimate Decreased; Segmented Neutrophils 87 % (50-85); Total Cells Counted 100
[2019-03-26 06:09] LABS: Macrocytosis Slight
[2019-03-26 06:12] LABS: Prealbumin 22.7 MG/DL (20-40)
[2019-03-26] MEDS ORDERED: ALBUMIN 25% 50 GM in PREMIX 1 EACH IV ONE (06:30)
[2019-03-26] MEDS: BUDESONIDE 0.5 MG/2 ML NEB RESP TX SCH ×2 (07:26→19:27)
[2019-03-26 07:50] LABS: Albumin 2.1 G/DL (3.4-5.0); Bilirubin,Total 1.4 MG/DL (0.2-1.0); Calcium 8.9 MG/DL (8.5-10.1); Osmolality,Calculated 309.1 MOS/KG (273-304); Total Protein 5.3 G/DL (6.4-8.3)
[2019-03-26] MEDS: ALBUMIN 25% 12.5 GM in PREMIX 1 EACH IV SCH ×2 (08:52→20:58)
[2019-03-26] MEDS: prednisoLONE ACETATE 1% OPH SUSP 5 ML BOTTLE LEFT EYE SCH (08:56)
[2019-03-26] MEDS: DORZOLAMIDE/TIMOLOL OPH SOLN 10 ML BOTTLE LEFT EYE SCH ×2 (08:56→21:11)
[2019-03-26] MEDS: NYSTATIN POWDER 15 GM BOTTLE TOP SCH ×2 (08:57→21:05)
[2019-03-26] MEDS: MOXIFLOXACIN 0.5% OPH SOLN 3 ML BOTTLE LEFT EYE SCH ×4 (08:57→21:11)
[2019-03-26] MEDS: BRIMONIDINE/TIMOLOL OPH SOLN 5 ML BOTTLE LEFT EYE SCH ×2 (08:57→21:11)
[2019-03-26] MEDS: FUROSEMIDE 40 MG/4 ML VIAL IV SCH ×2 (08:57→21:05)
[2019-03-26] MEDS: MULTIVITAMIN LIQUID (CENTRUM) 60 ML BOTTLE PER TUBE SCH (08:57)
[2019-03-26] MEDS: AZITHROMYCIN INJ 250 MG in SODIUM CHLORIDE 0.9% 250 ML IV SCH (09:24)
[2019-03-26] MEDS ORDERED: SILVER SULFADIAZINE 1% CREAM 25 GM TUBE TOP SCH (11:00)
[2019-03-26 17:05] LABS: Hematocrit 28.6 VOL% (35.7-47.0); Hemoglobin 9.4 GM/DL (12.0-16.0)
[2019-03-26] MEDS: PANTOPRAZOLE 40 MG VIAL IV SCH ×2 (17:13→21:01)
[2019-03-26] MEDS: INSULIN REGULAR IV SCH (17:19)
[2019-03-26] MEDS: [UNRECOGNIZED DRUG - OTHER] IV SCH (17:19)
[2019-03-26 20:05] LABS: Hematocrit 28.7 VOL% (35.7-47.0); Hemoglobin 9.1 GM/DL (12.0-16.0)
[2019-03-26] MEDS: SILVER SULFADIAZINE 1% CREAM 25 GM TUBE TOP SCH (21:14)
[2019-03-27] MEDS: INSULIN REGULAR 100 UNIT/ML SUBCUT SCH ×5 (04:45→21:51)
[2019-03-27] MEDS: MAGNESIUM HYDROXIDE SUSP 30 ML UDCUP PO SCH (04:45)
[2019-03-27] MEDS: methylPREDNISolone SOD SUC 40 MG/1 ML VIAL IV SCH ×3 (04:46→21:57)
[2019-03-27 05:47] LABS: ABG Base Excess 4.8 MMOL/L (-2.5-2.5); ABG HCO3 28.6 MMOL/L (20-26); ABG PCO2 48.3 MM HG (35-48); ABG PH 7.405 (7.35-7.45); ABG PO2 58.3 MM HG (80-95); ABG TCO2 27.7 MMOL/L (23-27)
[2019-03-27] MEDS: SUCRALFATE 1 GM/10 ML UDCUP NG SCH (05:52)
[2019-03-27 05:53] LABS: Basophils # 0.1 10*3/uL (0.0-0.2); Basophils % 0.4 % (0.0-0.8); Hematocrit 29.1 VOL% (35.7-47.0); Hemoglobin 9.6 GM/DL (12.0-16.0); Immature Granulocytes Absolute 2.67 #; Lymphocytes # 1.3 10*3/uL (1.4-4.0); Lymphocytes % 3.8 % (21.3-54.2); Mean Corpuscular Volume 92.7 FL (87-102); Monocytes % 4.6 % (1.7-12.7); NRBC # 0.81 10*3/uL; Neutrophils % 83.2 % (38.7-73.9); Platelet Count 43 T/CUMM (130-400); Red Blood Count 3.14 MC/CUMM (3.8-5.5); Red Cell Distribution Width 18.2 % (9.3-17.3); White Blood Count 33.5 T/CUMM (4-12)
[2019-03-27 06:11] LABS: Albumin 2.4 G/DL (3.4-5.0); Bilirubin,Total 1.7 MG/DL (0.2-1.0); Calcium 8.9 MG/DL (8.5-10.1); Osmolality,Calculated 312.1 MOS/KG (273-304); Total Protein 5.2 G/DL (6.4-8.3)
[2019-03-27 06:16] LABS: Band Neutrophils 3 % (0-10); Hypochromasia 1+; Lymphocytes 9 % (20-55); Nucleated Red Blood Cells 5 (0-5); Platelet Estimate Decreased; Segmented Neutrophils 85 % (50-85); Total Cells Counted 100
[2019-03-27] MEDS: BUDESONIDE 0.5 MG/2 ML NEB RESP TX SCH ×2 (07:03→19:09)
[2019-03-27] MEDS: ALBUMIN 25% 12.5 GM in PREMIX 1 EACH IV SCH ×2 (08:45→21:25)
[2019-03-27] MEDS: DORZOLAMIDE/TIMOLOL OPH SOLN 10 ML BOTTLE LEFT EYE SCH ×2 (08:46→21:59)
[2019-03-27] MEDS: prednisoLONE ACETATE 1% OPH SUSP 5 ML BOTTLE LEFT EYE SCH (08:46)
[2019-03-27] MEDS: MOXIFLOXACIN 0.5% OPH SOLN 3 ML BOTTLE LEFT EYE SCH ×4 (08:46→22:00)
[2019-03-27] MEDS: BRIMONIDINE/TIMOLOL OPH SOLN 5 ML BOTTLE LEFT EYE SCH ×2 (08:46→22:00)
[2019-03-27] MEDS: NYSTATIN POWDER 15 GM BOTTLE TOP SCH ×2 (08:46→21:58)
[2019-03-27] MEDS: PANTOPRAZOLE 40 MG VIAL IV SCH ×2 (08:47→21:57)
[2019-03-27] MEDS: FUROSEMIDE 40 MG/4 ML VIAL IV SCH ×2 (08:51→21:57)
[2019-03-27] MEDS: AZITHROMYCIN INJ 250 MG in SODIUM CHLORIDE 0.9% 250 ML IV SCH (08:56)
[2019-03-27] MEDS: SILVER SULFADIAZINE 1% CREAM 25 GM TUBE TOP SCH (09:23)
[2019-03-27] MEDS: ELECTROLYTE IV SCH (18:43)
[2019-03-27] MEDS: INSULIN REGULAR IV SCH (18:43)
[2019-03-27] MEDS: [UNRECOGNIZED DRUG - OTHER] IV SCH (18:43)
[2019-03-27] MEDS: MULTIVITAMIN IV SCH (18:43)
[2019-03-28] MEDS: INSULIN REGULAR 100 UNIT/ML SUBCUT SCH ×6 (00:15→20:24)
[2019-03-28 04:57] LABS: ABG Base Excess 4.8 MMOL/L (-2.5-2.5); ABG HCO3 28.8 MMOL/L (20-26); ABG Oxygen Saturation 98.3 % (95-100); ABG PCO2 49.9 MM HG (35-48); ABG PH 7.395 (7.35-7.45)
[2019-03-28 05:04] LABS: Basophils # 0.1 10*3/uL (0.0-0.2); Basophils % 0.3 % (0.0-0.8); Hematocrit 28.1 VOL% (35.7-47.0); Hemoglobin 9.2 GM/DL (12.0-16.0); Immature Granulocytes % 6.4 %; Immature Granulocytes Absolute 2.53 #; Lymphocytes # 1.3 10*3/uL (1.4-4.0); Lymphocytes % 3.4 % (21.3-54.2); Mean Corpuscular HGB Conc 32.7 GM/DL (32-36); Mean Corpuscular Volume 92.7 FL (87-102); Monocytes % 4.4 % (1.7-12.7); NRBC # 0.79 10*3/uL; Neutrophils % 85.5 % (38.7-73.9); Platelet Count 43 T/CUMM (130-400); Red Blood Count 3.03 MC/CUMM (3.8-5.5); Red Cell Distribution Width 18.8 % (9.3-17.3); White Blood Count 39.3 T/CUMM (4-12)
[2019-03-28] MEDS: methylPREDNISolone SOD SUC 40 MG/1 ML VIAL IV SCH ×3 (05:07→21:31)
[2019-03-28 05:44] LABS: Band Neutrophils 2 % (0-10); Hypochromasia 1+; Lymphocytes 3 % (20-55); Nucleated Red Blood Cells 4 (0-5); Polychromasia Few; Segmented Neutrophils 90 % (50-85); Total Cells Counted 100
[2019-03-28 05:45] LABS: Anisocytosis 1+; Macrocytosis 1+; Platelet Estimate Decreased
[2019-03-28 05:47] LABS: Albumin 2.4 G/DL (3.4-5.0); Bilirubin,Total 1.8 MG/DL (0.2-1.0); Calcium 9.1 MG/DL (8.5-10.1); Osmolality,Calculated 320.1 MOS/KG (273-304); Total Protein 5.2 G/DL (6.4-8.3)
[2019-03-28] MEDS: BUDESONIDE 0.5 MG/2 ML NEB RESP TX SCH ×2 (07:38→19:26)
[2019-03-28] MEDS: FUROSEMIDE 40 MG/4 ML VIAL IV SCH ×2 (08:00→08:49)
[2019-03-28] MEDS: AZITHROMYCIN INJ 250 MG in SODIUM CHLORIDE 0.9% 250 ML IV SCH (08:00)
[2019-03-28] MEDS: PANTOPRAZOLE 40 MG VIAL IV SCH ×2 (08:00→21:28)
[2019-03-28] MEDS: ALBUMIN 25% 12.5 GM in PREMIX 1 EACH IV SCH (08:00)
[2019-03-28] MEDS: DORZOLAMIDE/TIMOLOL OPH SOLN 10 ML BOTTLE LEFT EYE SCH ×2 (08:01→21:25)
[2019-03-28] MEDS: NYSTATIN POWDER 15 GM BOTTLE TOP SCH ×2 (08:01→21:25)
[2019-03-28] MEDS: MOXIFLOXACIN 0.5% OPH SOLN 3 ML BOTTLE LEFT EYE SCH ×4 (08:01→21:25)
[2019-03-28] MEDS: prednisoLONE ACETATE 1% OPH SUSP 5 ML BOTTLE LEFT EYE SCH (08:01)
[2019-03-28] MEDS: BRIMONIDINE/TIMOLOL OPH SOLN 5 ML BOTTLE LEFT EYE SCH ×2 (08:01→21:25)
[2019-03-28] MEDS: SILVER SULFADIAZINE 1% CREAM 25 GM TUBE TOP SCH (08:02)
[2019-03-28] MEDS: POTASSIUM CHLORIDE RIDER 20 MEQ in PREMIX 1 EACH IV PRN (09:15)
[2019-03-28] MEDS: INSULIN REGULAR IV SCH (17:16)
[2019-03-28] MEDS: [UNRECOGNIZED DRUG - OTHER] IV SCH (17:16)
[2019-03-28] MEDS: MULTIVITAMIN IV SCH (17:16)
[2019-03-28] MEDS: ELECTROLYTE IV SCH (17:16)
[2019-03-28] MEDS: VECURONIUM 100 MG in SODIUM CHLORIDE 0.9% 100 ML IV SCH (21:33)
[2019-03-29] MEDS: INSULIN REGULAR 100 UNIT/ML SUBCUT SCH ×6 (00:38→20:16)
[2019-03-29 04:00] LABS: ABG Base Excess 4.4 MMOL/L (-2.5-2.5); ABG HCO3 28.4 MMOL/L (20-26); ABG Oxygen Saturation 97.1 % (95-100); ABG PCO2 63.6 MM HG (35-48); ABG PH 7.311 (7.35-7.45); ABG PO2 93.7 MM HG (80-95); ABG TCO2 29.9 MMOL/L (23-27)
[2019-03-29 04:09] LABS: Basophils # 0.1 10*3/uL (0.0-0.2); Basophils % 0.3 % (0.0-0.8); Hematocrit 28.1 VOL% (35.7-47.0); Immature Granulocytes % 5.9 %; Immature Granulocytes Absolute 2.35 #; Lymphocytes % 2.6 % (21.3-54.2); Mean Corpuscular Volume 95.9 FL (87-102); Monocytes % 4.5 % (1.7-12.7); NRBC # 0.55 10*3/uL; Neutrophils % 86.7 % (38.7-73.9); Platelet Count 53 T/CUMM (130-400); Red Blood Count 2.93 MC/CUMM (3.8-5.5); Red Cell Distribution Width 19.7 % (9.3-17.3); White Blood Count 39.6 T/CUMM (4-12)
[2019-03-29 04:28] LABS: Band Neutrophils 1 % (0-10); Hypochromasia 1+; Lymphocytes 6 % (20-55); Macrocytosis Slight; Platelet Estimate Decreased; Segmented Neutrophils 88 % (50-85); Total Cells Counted 100
[2019-03-29 04:31] LABS: Albumin 2.3 G/DL (3.4-5.0); Bilirubin,Total 1.6 MG/DL (0.2-1.0); Osmolality,Calculated 321.4 MOS/KG (273-304); Total Protein 5.3 G/DL (6.4-8.3)
[2019-03-29 04:33] LABS: Prealbumin 24.6 MG/DL (20-40)
[2019-03-29] MEDS: BUDESONIDE 0.5 MG/2 ML NEB RESP TX SCH ×2 (07:04→19:23)
[2019-03-29] MEDS: FUROSEMIDE 40 MG/4 ML VIAL IV SCH (08:15)
[2019-03-29] MEDS: PANTOPRAZOLE 40 MG VIAL IV SCH ×2 (08:16→20:15)
[2019-03-29] MEDS: methylPREDNISolone SOD SUC 40 MG/1 ML VIAL IV SCH ×2 (08:16→20:15)
[2019-03-29] MEDS: NYSTATIN POWDER 15 GM BOTTLE TOP SCH ×2 (08:16→20:18)
[2019-03-29] MEDS: prednisoLONE ACETATE 1% OPH SUSP 5 ML BOTTLE LEFT EYE SCH (08:16)
[2019-03-29] MEDS: DORZOLAMIDE/TIMOLOL OPH SOLN 10 ML BOTTLE LEFT EYE SCH ×2 (08:16→20:17)
[2019-03-29] MEDS: MOXIFLOXACIN 0.5% OPH SOLN 3 ML BOTTLE LEFT EYE SCH ×4 (08:16→20:17)
[2019-03-29] MEDS: BRIMONIDINE/TIMOLOL OPH SOLN 5 ML BOTTLE LEFT EYE SCH ×2 (08:16→20:18)
[2019-03-29] MEDS: AZITHROMYCIN INJ 250 MG in SODIUM CHLORIDE 0.9% 250 ML IV SCH (08:21)
[2019-03-29] MEDS: SILVER SULFADIAZINE 1% CREAM 25 GM TUBE TOP SCH ×3 (09:29→20:17)
[2019-03-29] MEDS: VECURONIUM 100 MG in SODIUM CHLORIDE 0.9% 100 ML IV SCH (15:01)
[2019-03-29] MEDS: [UNRECOGNIZED DRUG - OTHER] IV SCH (17:14)
[2019-03-29] MEDS: MULTIVITAMIN IV SCH (17:14)
[2019-03-29] MEDS: ELECTROLYTE IV SCH (17:14)
[2019-03-29] MEDS: INSULIN REGULAR IV SCH (17:14)
[2019-03-29] MEDS: METOCLOPRAMIDE 10 MG/2 ML VIAL IV SCH (18:08)
[2019-03-30] MEDS: VECURONIUM 100 MG in SODIUM CHLORIDE 0.9% 100 ML IV SCH ×2 (00:14→10:54)
[2019-03-30] MEDS: METOCLOPRAMIDE 10 MG/2 ML VIAL IV SCH ×4 (00:21→17:34)
[2019-03-30] MEDS: INSULIN REGULAR 100 UNIT/ML SUBCUT SCH ×7 (00:23→21:05)
[2019-03-30] MEDS: fentaNYL INJ 1,250 MCG in SODIUM CHLORIDE 0.9% 225 ML IV PRN ×2 (01:25→14:02)
[2019-03-30 03:53] LABS: ABG Base Excess 0.8 MMOL/L (-2.5-2.5); ABG Oxygen Saturation 96.6 % (95-100); ABG TCO2 32.4 MMOL/L (23-27)
[2019-03-30 03:56] LABS: ABG PCO2 77.8 MM HG (35-48); ABG PH 7.204 (7.35-7.45)
[2019-03-30 04:00] LABS: Basophils # 0.1 10*3/uL (0.0-0.2); Basophils % 0.3 % (0.0-0.8); Hematocrit 29.7 VOL% (35.7-47.0); Hemoglobin 9.2 GM/DL (12.0-16.0); Immature Granulocytes % 5.1 %; Immature Granulocytes Absolute 2.26 #; Lymphocytes # 1.1 10*3/uL (1.4-4.0); Lymphocytes % 2.4 % (21.3-54.2); NRBC # 1.26 10*3/uL; Neutrophils % 87.2 % (38.7-73.9); Red Blood Count 2.97 MC/CUMM (3.8-5.5); Red Cell Distribution Width 19.9 % (9.3-17.3)
[2019-03-30 04:01] LABS: Platelet Count 75 T/CUMM (130-400)
[2019-03-30 04:02] LABS: White Blood Count 44.1 T/CUMM (4-12)
[2019-03-30] MEDS ORDERED: SODIUM BICARBONATE 50 MEQ/50 ML VIAL IV ONE ×2 (04:10→05:10)
[2019-03-30 04:30] LABS: Band Neutrophils 1 % (0-10); Hypochromasia 1+; Lymphocytes 6 % (20-55); Nucleated Red Blood Cells 3 (0-5); Platelet Estimate Decreased; Segmented Neutrophils 87 % (50-85); Total Cells Counted 100
[2019-03-30 04:31] LABS: Macrocytosis Slight
[2019-03-30 04:48] LABS: Albumin 2.2 G/DL (3.4-5.0); Bilirubin,Total 1.7 MG/DL (0.2-1.0); Calcium 9.2 MG/DL (8.5-10.1); Osmolality,Calculated 328.2 MOS/KG (273-304); Total Protein 5.5 G/DL (6.4-8.3)
[2019-03-30] MEDS ORDERED: INSULIN REGULAR 100 UNIT/ML IV ONE (05:09)
[2019-03-30] MEDS ORDERED: ALBUTEROL NEB SOLN 5 MG/ML 20 ML/BOTTLE CONT NEB ONE (05:10)
[2019-03-30] MEDS: DEXTROSE 10% 250 ML BAG IV PRN (05:25)
[2019-03-30] MEDS: BUDESONIDE 0.5 MG/2 ML NEB RESP TX SCH ×2 (05:53→19:28)
[2019-03-30] MEDS ORDERED: NOREPINEPHRINE 4 MG/4 ML VIAL IV ONE (06:35)
[2019-03-30] MEDS: NOREPINEPHRINE 8 MG in SODIUM CHLORIDE 0.9% 242 ML IV PRN (06:58)
[2019-03-30] MEDS: FUROSEMIDE 40 MG/4 ML VIAL IV SCH (10:31)
[2019-03-30] MEDS: methylPREDNISolone SOD SUC 40 MG/1 ML VIAL IV SCH ×2 (10:35→20:57)
[2019-03-30] MEDS: PANTOPRAZOLE 40 MG VIAL IV SCH ×2 (10:38→20:53)
[2019-03-30] MEDS: MOXIFLOXACIN 0.5% OPH SOLN 3 ML BOTTLE LEFT EYE SCH ×4 (10:42→20:58)
[2019-03-30] MEDS: BRIMONIDINE/TIMOLOL OPH SOLN 5 ML BOTTLE LEFT EYE SCH ×2 (10:43→20:58)
[2019-03-30] MEDS: prednisoLONE ACETATE 1% OPH SUSP 5 ML BOTTLE LEFT EYE SCH (10:43)
[2019-03-30] MEDS: DORZOLAMIDE/TIMOLOL OPH SOLN 10 ML BOTTLE LEFT EYE SCH ×2 (10:44→20:58)
[2019-03-30] MEDS: NYSTATIN POWDER 15 GM BOTTLE TOP SCH ×2 (10:44→20:57)
[2019-03-30] MEDS: SILVER SULFADIAZINE 1% CREAM 25 GM TUBE TOP SCH ×2 (10:44→20:58)
[2019-03-30] MEDS: metroNIDAZOLE INJ 500 MG in PREMIX 1 EACH IV SCH ×3 (10:53→20:53)
[2019-03-30] MEDS: PIPERACILLIN/TAZOBACTAM 3,375 MG in SODIUM CHLORIDE 0.9% 100 ML IV SCH ×2 (10:53→17:09)
[2019-03-30] MEDS: ELECTROLYTE IV SCH (16:56)
[2019-03-30] MEDS: [UNRECOGNIZED DRUG - OTHER] IV SCH (16:56)
[2019-03-30] MEDS: MULTIVITAMIN IV SCH (16:56)
[2019-03-30] MEDS: INSULIN REGULAR IV SCH (16:56)
[2019-03-31] MEDS: INSULIN REGULAR 100 UNIT/ML SUBCUT SCH ×7 (00:12→23:52)
[2019-03-31] MEDS: METOCLOPRAMIDE 10 MG/2 ML VIAL IV SCH ×5 (00:12→23:41)
[2019-03-31] MEDS: VECURONIUM 100 MG in SODIUM CHLORIDE 0.9% 100 ML IV SCH ×3 (00:25→23:40)
[2019-03-31] MEDS: PIPERACILLIN/TAZOBACTAM 3,375 MG in SODIUM CHLORIDE 0.9% 100 ML IV SCH ×3 (00:25→17:21)
[2019-03-31 04:38] LABS: Albumin 1.7 G/DL (3.4-5.0); Bilirubin,Total 1.6 MG/DL (0.2-1.0); Calcium 8.3 MG/DL (8.5-10.1); Osmolality,Calculated 341.1 MOS/KG (273-304); Total Protein 4.3 G/DL (6.4-8.3)
[2019-03-31] MEDS: fentaNYL INJ 1,250 MCG in SODIUM CHLORIDE 0.9% 225 ML IV PRN ×2 (04:50→18:36)
[2019-03-31 04:56] LABS: Basophils # 0.1 10*3/uL (0.0-0.2); Basophils % 0.2 % (0.0-0.8); Hematocrit 21.7 VOL% (35.7-47.0); Immature Granulocytes % 4.3 %; Immature Granulocytes Absolute 1.29 #; Lymphocytes # 0.6 10*3/uL (1.4-4.0); Mean Corpuscular HGB Conc 31.3 GM/DL (32-36); Mean Corpuscular Volume 99.1 FL (87-102); Mean Platelet Volume 14.4 FL (9.6-12.0); Monocytes % 4.5 % (1.7-12.7); Red Cell Distribution Width 20.3 % (9.3-17.3)
[2019-03-31 04:58] LABS: Hemoglobin 6.8 GM/DL (12.0-16.0); Platelet Count 65 T/CUMM (130-400); Red Blood Count 2.19 MC/CUMM (3.8-5.5); White Blood Count 29.9 T/CUMM (4-12)
[2019-03-31] MEDS ORDERED: SODIUM BICARBONATE 50 MEQ/50 ML VIAL IV ONE (05:07)
[2019-03-31] MEDS ORDERED: INSULIN REGULAR 100 UNIT/ML IV ONE (05:07)
[2019-03-31 05:15] LABS: ABG Base Excess 2.8 MMOL/L (-2.5-2.5); ABG HCO3 26.8 MMOL/L (20-26); ABG Oxygen Saturation 85.8 % (95-100); ABG PCO2 48.6 MM HG (35-48); ABG PH 7.375 (7.35-7.45); ABG PO2 51.2 MM HG (80-95); Allen Test Positive; Pt O2 Delivery Device Ventilator
[2019-03-31] MEDS: metroNIDAZOLE INJ 500 MG in PREMIX 1 EACH IV SCH ×4 (05:19→23:41)
[2019-03-31 05:40] VITALS: BP 101/57
[2019-03-31] MEDS: DEXTROSE 10% 250 ML BAG IV PRN (05:40)
[2019-03-31 06:18] LABS: Band Neutrophils 1 % (0-10); Eosinophils 2 % (0-10); Lymphocytes 4 % (20-55); Metamyelocytes 1 %; Platelet Estimate Decreased; Segmented Neutrophils 90 % (50-85); Total Cells Counted 100
[2019-03-31 06:19] LABS: Anisocytosis 2+; Hypochromasia 1+; Macrocytosis 2+; Polychromasia Few
[2019-03-31] MEDS: BUDESONIDE 0.5 MG/2 ML NEB RESP TX SCH ×2 (06:53→20:24)
[2019-03-31] MEDS: DORZOLAMIDE/TIMOLOL OPH SOLN 10 ML BOTTLE LEFT EYE SCH ×2 (09:25→20:22)
[2019-03-31] MEDS: BRIMONIDINE/TIMOLOL OPH SOLN 5 ML BOTTLE LEFT EYE SCH ×2 (09:25→20:23)
[2019-03-31] MEDS: prednisoLONE ACETATE 1% OPH SUSP 5 ML BOTTLE LEFT EYE SCH (09:25)
[2019-03-31] MEDS: MOXIFLOXACIN 0.5% OPH SOLN 3 ML BOTTLE LEFT EYE SCH ×4 (09:25→20:22)
[2019-03-31] MEDS: NYSTATIN POWDER 15 GM BOTTLE TOP SCH ×2 (09:26→20:22)
[2019-03-31] MEDS: SILVER SULFADIAZINE 1% CREAM 25 GM TUBE TOP SCH ×2 (09:26→20:23)
[2019-03-31] MEDS: FUROSEMIDE 40 MG/4 ML VIAL IV SCH (09:29)
[2019-03-31] MEDS: methylPREDNISolone SOD SUC 40 MG/1 ML VIAL IV SCH ×2 (09:32→20:21)
[2019-03-31] MEDS: PANTOPRAZOLE 40 MG VIAL IV SCH ×2 (09:35→20:21)
[2019-03-31] MEDS: [UNRECOGNIZED DRUG - OTHER] IV SCH (17:24)
[2019-03-31] MEDS: ELECTROLYTE IV SCH (17:24)
[2019-03-31] MEDS: INSULIN REGULAR IV SCH (17:24)
[2019-03-31] MEDS: MULTIVITAMIN IV SCH (17:24)
[2019-03-31] MEDS: NOREPINEPHRINE 8 MG in SODIUM CHLORIDE 0.9% 242 ML IV PRN (22:51)
[2019-04-01] MEDS: PIPERACILLIN/TAZOBACTAM 3,375 MG in SODIUM CHLORIDE 0.9% 100 ML IV SCH ×2 (01:09→10:38)
[2019-04-01 05:13] LABS: Basophils # 0.1 10*3/uL (0.0-0.2); Basophils % 0.2 % (0.0-0.8); Hemoglobin 6.9 GM/DL (12.0-16.0); Immature Granulocytes % 4.4 %; Immature Granulocytes Absolute 1.39 #; Lymphocytes # 0.8 10*3/uL (1.4-4.0); Lymphocytes % 2.5 % (21.3-54.2); Mean Corpuscular HGB Conc 31.4 GM/DL (32-36); Mean Corpuscular Volume 99.1 FL (87-102); Mean Platelet Volume 13.4 FL (9.6-12.0); Monocytes % 5.7 % (1.7-12.7); NRBC # 0.13 10*3/uL; Neutrophils % 87.2 % (38.7-73.9); Red Blood Count 2.22 MC/CUMM (3.8-5.5); Red Cell Distribution Width 20.3 % (9.3-17.3); White Blood Count 31.3 T/CUMM (4-12)
[2019-04-01 05:17] LABS: Platelet Count 85 T/CUMM (130-400)
[2019-04-01] MEDS: METOCLOPRAMIDE 10 MG/2 ML VIAL IV SCH ×2 (05:24→11:53)
[2019-04-01] MEDS: metroNIDAZOLE INJ 500 MG in PREMIX 1 EACH IV SCH ×2 (05:24→10:48)
[2019-04-01] MEDS: INSULIN REGULAR 100 UNIT/ML SUBCUT SCH ×3 (05:24→11:48)
[2019-04-01 06:04] LABS: Band Neutrophils 1 % (0-10); Hypochromasia 1+; Lymphocytes 4 % (20-55); Macrocytosis 1+; Metamyelocytes 1 %; Nucleated Red Blood Cells 2 (0-5); Segmented Neutrophils 92 % (50-85); Total Cells Counted 100
[2019-04-01 06:05] LABS: Platelet Estimate Decreased
[2019-04-01 07:10] LABS: Albumin 1.7 G/DL (3.4-5.0); Bilirubin,Total 1.9 MG/DL (0.2-1.0); Calcium 8.2 MG/DL (8.5-10.1); Total Protein 4.7 G/DL (6.4-8.3)
[2019-04-01] MEDS: BUDESONIDE 0.5 MG/2 ML NEB RESP TX SCH (07:42)
[2019-04-01 08:02] LABS: Osmolality,Calculated 351.8 MOS/KG (273-304)
[2019-04-01] MEDS: fentaNYL INJ 1,250 MCG in SODIUM CHLORIDE 0.9% 225 ML IV PRN (09:17)
[2019-04-01] MEDS: SILVER SULFADIAZINE 1% CREAM 25 GM TUBE TOP SCH (09:25)
[2019-04-01] MEDS: NYSTATIN POWDER 15 GM BOTTLE TOP SCH (09:26)
[2019-04-01] MEDS: BRIMONIDINE/TIMOLOL OPH SOLN 5 ML BOTTLE LEFT EYE SCH (09:27)
[2019-04-01] MEDS: prednisoLONE ACETATE 1% OPH SUSP 5 ML BOTTLE LEFT EYE SCH (09:28)
[2019-04-01] MEDS: DORZOLAMIDE/TIMOLOL OPH SOLN 10 ML BOTTLE LEFT EYE SCH (09:28)
[2019-04-01] MEDS: MOXIFLOXACIN 0.5% OPH SOLN 3 ML BOTTLE LEFT EYE SCH ×2 (09:28→13:15)
[2019-04-01] MEDS: methylPREDNISolone SOD SUC 40 MG/1 ML VIAL IV SCH (09:33)
[2019-04-01] MEDS: FUROSEMIDE 40 MG/4 ML VIAL IV SCH (09:42)
[2019-04-01] MEDS: PANTOPRAZOLE 40 MG VIAL IV SCH (09:44)
== END 2019-04-01 14:00 | disposition expired | DRG 368 ==
LOC: N.TELEN 03:14 → SUPCPDRO 03:14 → SUATTDRO 03:14 → N.2E 03-12 19:07 → N.ICU 03-15 11:32
PROVIDERS: ADMIT Internal Medicine; ATTEND Internal Medicine